=== PATIENT | male | born 1970 | race Caucasian/White ===

== ENCOUNTER → 2018-12-30 | Outpatient (CLI) | payer OTHER ==
[~2018-12-30] MED LIST: ACETAMINOPHEN325 M1 PO; ASPIR 8181 MG PO; ASPIRIN325 PO; ATORVASTATIN CA40 MG PO; BENICAR40 MG PO; CARVEDILOL25 MG PO; CEFAZOLIN2 GM/100 M IV; COREG25 MG PO; DURAGESIC1 EAC4 TRANSDERM; FERREX 150 PLU1 EAC1 PO; HYDROCODON-ACE1 EAC7 PO; LANTUS100 UNIT/M SUBQ; NITROGLYCERIN0.4 MG SUBLING; NORVASC10 MG PO; NOVOLOG100 UNIT/1 SUBQ; OZEMPIC0.25 MG/0. SUBQ; PEPCID AC10 MG PO; TRESIBA100 UNIT/1 SUBQ; TUMS PO; VITAMIN D350000 UNIT PO
== END ==
LOC: ULTRA 06:49
DX: Z01.818 Encounter for other preprocedural examination (principal); I25.119 Atherosclerotic heart disease of native coronary artery with unspecified angina pectoris; E11.22 Type 2 diabetes mellitus with diabetic chronic kidney disease; I12.9 Hypertensive chronic kidney disease with stage 1 through stage 4 chronic kidney disease, or unspecified chronic kidney disease; N18.3 Chronic kidney disease, stage 3 (moderate); E78.5 Hyperlipidemia, unspecified; E66.01 Morbid (severe) obesity due to excess calories; F17.210 Nicotine dependence, cigarettes, uncomplicated; Z95.1 Presence of aortocoronary bypass graft; Z79.4 Long term (current) use of insulin

== ENCOUNTER 2019-01-02 05:27 | Inpatient (IN) | payer OTHER ==
[2018-12-30 09:40] LABS: ABSOLUTE NEUTROPHILS 5.7 thou/uL (1.4-8.2); BASOPHILS 1.1 % (0.0-2.0); EOSINOPHILS 2.8 % (0.0-3.0); HEMATOCRIT 49.3 % (42.0-52.0); LYMPHOCYTES 27.9 % (24.0-44.0); MCHC 34.4 g/dL (28.0-37.0); MCV 84.5 fL (80.0-100.0); MONOCYTES 5.9 % (1.0-8.0); POLYS 62.3 % (36.0-66.0); RBC 5.84 mil/uL (4.50-6.00); RDW 14.9 % (10.5-14.5); WBC 9.1 thou/uL (4.0-11.0)
[2018-12-30 09:52] LABS: ALBUMIN 3.6 g/dL (3.4-5.0); CREATININE 1.3 mg/dL (0.7-1.3); POTASSIUM 3.9 mmol/L (3.5-5.1); TOTAL BILIRUBIN 0.5 mg/dL (<0.1-1.0); TOTAL PROTEIN 6.7 g/dL (6.4-8.2)
[2018-12-30 09:53] LABS: APTT 31.9 Seconds (24.5-32.8); PROTIME 10.4 Seconds (9.3-11.4); URINE BILIRUBIN NEGATIVE (Negative); URINE BLOOD NEGATIVE (Negative); URINE CLARITY CLEAR; URINE COLOR YELLOW; URINE GLUCOSE-RANDOM* NEGATIVE (Negative); URINE KETONES NEGATIVE (Negative); URINE LEUKOCYTES-REFLEX NEGATIVE (Negative); URINE NITRITE-REFLEX NEGATIVE (Negative); URINE PROTEIN (DIPSTICK) NEGATIVE (Negative); URINE UROBILINOGEN 0.2 E.U./dl (0.2-1.0)
[2018-12-30 10:20] LABS: PLATELET COUNT 146 thou/uL (150-400)
[2018-12-31 00:08] LABS: GLYCOHEMOGLOBIN (HGB A1C) 5.7 % (4.8-5.6)
[~2019-01-02] VITALS: Ht 175.3 cm; Wt 138.8 kg
[2019-01-02] VITALS (15 sets, daily range): BP systolic 100–161; BP diastolic 73–95
[~2019-01-02 05:27] MED LIST changes: -ACETAMINOPHEN325 M1 PO; -ASPIR 8181 MG PO; -CARVEDILOL25 MG PO; -CEFAZOLIN2 GM/100 M IV; -DURAGESIC1 EAC4 TRANSDERM; -FERREX 150 PLU1 EAC1 PO; -HYDROCODON-ACE1 EAC7 PO; -LANTUS100 UNIT/M SUBQ; -NOVOLOG100 UNIT/1 SUBQ
[2019-01-02 08:14] LABS: HEMATOCRIT 46.1 % (42.0-52.0); MCH 28.8 pg (26.0-34.0); MCHC 34.1 g/dL (28.0-37.0); MCV 84.4 fL (80.0-100.0); RBC 5.46 mil/uL (4.50-6.00); RDW 14.4 % (10.5-14.5); WBC 7.1 thou/uL (4.0-11.0)
[2019-01-02 08:18] LABS: HEMOGLOBIN 15.7 gm/dL (14.0-18.0)
[2019-01-02 14:42] LABS: HEMATOCRIT 36.1 % (42.0-52.0); MCHC 33.9 g/dL (28.0-37.0); MCV 85.5 fL (80.0-100.0); RBC 4.22 mil/uL (4.50-6.00); RDW 15.1 % (10.5-14.5)
[2019-01-02 14:44] LABS: HEMOGLOBIN 12.2 gm/dL (14.0-18.0)
[2019-01-02 14:54] LABS: FIBRINOGEN 204.8 mg/dL (210-360); INR 1.4; PROTIME 14.7 Seconds (9.3-11.4)
[2019-01-02 15:33] LABS: POC BE -1 mmol/L (-2.0 to +3.0); POC CA IONIZED 4.3 mg/dL (4.5-5.3); POC GLUCOSE 189 mg/dL (70-99); POC HCO3 24.2 mmol/L (22.0-26.0); POC HEMOGLOBIN 13.6 g/dL (14.0-18.0); POC POTASSIUM 5.3 mmol/L (3.5-5.1); POC SODIUM 135 mmol/L (136-145); POC pCO2 42.7 mmHg (35.0-45.0); POC pH 7.361 (7.360-7.450)
[2019-01-02 15:33] LABS: POC BE -3 mmol/L (-2.0 to +3.0); POC CA IONIZED 4.7 mg/dL (4.5-5.3); POC GLUCOSE 186 mg/dL (70-99); POC HCO3 23.7 mmol/L (22.0-26.0); POC HEMOGLOBIN 13.6 g/dL (14.0-18.0); POC POTASSIUM 4.8 mmol/L (3.5-5.1); POC SODIUM 138 mmol/L (136-145); POC pCO2 48.1 mmHg (35.0-45.0); POC pH 7.301 (7.360-7.450)
[2019-01-02 15:33] LABS: POC BE -3 mmol/L (-2.0 to +3.0); POC CA IONIZED 4.9 mg/dL (4.5-5.3); POC GLUCOSE 185 mg/dL (70-99); POC HCO3 22.5 mmol/L (22.0-26.0); POC HEMOGLOBIN 15.3 g/dL (14.0-18.0); POC POTASSIUM 4.7 mmol/L (3.5-5.1); POC SODIUM 137 mmol/L (136-145); POC pCO2 41.3 mmHg (35.0-45.0); POC pH 7.345 (7.360-7.450)
[2019-01-02 15:33] LABS: POC BE -1 mmol/L (-2.0 to +3.0); POC CA IONIZED 4.4 mg/dL (4.5-5.3); POC GLUCOSE 184 mg/dL (70-99); POC HCO3 24.3 mmol/L (22.0-26.0); POC HEMOGLOBIN 12.2 g/dL (14.0-18.0); POC POTASSIUM 4.6 mmol/L (3.5-5.1); POC SODIUM 138 mmol/L (136-145); POC pCO2 45.1 mmHg (35.0-45.0); POC pH 7.339 (7.360-7.450)
[2019-01-02 15:33] LABS: POC BE -6 mmol/L (-2.0 to +3.0); POC CA IONIZED 5.2 mg/dL (4.5-5.3); POC GLUCOSE 141 mg/dL (70-99); POC HCO3 20.7 mmol/L (22.0-26.0); POC HEMOGLOBIN 14.3 g/dL (14.0-18.0); POC POTASSIUM 4.1 mmol/L (3.5-5.1); POC SODIUM 140 mmol/L (136-145); POC pCO2 42.1 mmHg (35.0-45.0); POC pH 7.301 (7.360-7.450)
[2019-01-02 15:33] LABS: POC BE -1 mmol/L (-2.0 to +3.0); POC CA IONIZED 4.8 mg/dL (4.5-5.3); POC GLUCOSE 141 mg/dL (70-99); POC HEMOGLOBIN 15.3 g/dL (14.0-18.0); POC SODIUM 137 mmol/L (136-145); POC pCO2 47.9 mmHg (35.0-45.0); POC pH 7.325 (7.360-7.450)
[2019-01-02 15:33] LABS: POC BE -2 mmol/L (-2.0 to +3.0); POC CA IONIZED 4.5 mg/dL (4.5-5.3); POC GLUCOSE 184 mg/dL (70-99); POC HCO3 23.6 mmol/L (22.0-26.0); POC HEMOGLOBIN 12.6 g/dL (14.0-18.0); POC POTASSIUM 4.6 mmol/L (3.5-5.1); POC SODIUM 138 mmol/L (136-145); POC pCO2 45.3 mmHg (35.0-45.0); POC pH 7.325 (7.360-7.450)
[2019-01-02 15:33] LABS: POC BE -3 mmol/L (-2.0 to +3.0); POC CA IONIZED 5.2 mg/dL (4.5-5.3); POC GLUCOSE 166 mg/dL (70-99); POC HEMOGLOBIN 11.9 g/dL (14.0-18.0); POC SODIUM 139 mmol/L (136-145); POC pCO2 45.9 mmHg (35.0-45.0); POC pH 7.308 (7.360-7.450)
[2019-01-02 15:33] LABS: POC BE -2 mmol/L (-2.0 to +3.0); POC CA IONIZED 4.7 mg/dL (4.5-5.3); POC GLUCOSE 188 mg/dL (70-99); POC HCO3 24.3 mmol/L (22.0-26.0); POC HEMOGLOBIN 13.6 g/dL (14.0-18.0); POC POTASSIUM 4.7 mmol/L (3.5-5.1); POC SODIUM 138 mmol/L (136-145); POC pCO2 51.7 mmHg (35.0-45.0)
[2019-01-02 15:33] LABS: POC BE -3 mmol/L (-2.0 to +3.0); POC CA IONIZED 4.5 mg/dL (4.5-5.3); POC GLUCOSE 182 mg/dL (70-99); POC HCO3 23.2 mmol/L (22.0-26.0); POC HEMOGLOBIN 11.2 g/dL (14.0-18.0); POC POTASSIUM 4.5 mmol/L (3.5-5.1); POC SODIUM 137 mmol/L (136-145); POC pCO2 44.8 mmHg (35.0-45.0); POC pH 7.321 (7.360-7.450)
[2019-01-02 16:13] LABS: BE(vivo) -5.5 mmol/L (-2 to +3); HCO3 21.6 mmol/L (22.0-26.0); PO2 73.3 mmHg (80.0-100.0); pH 7.271 (7.360-7.450); sO2 92.7 % (92.0-98.0)
[2019-01-02 16:21] LABS: HEMATOCRIT 44.1 % (42.0-52.0); HEMOGLOBIN 14.9 gm/dL (14.0-18.0); MCH 28.7 pg (26.0-34.0); MCHC 33.8 g/dL (28.0-37.0); MCV 85.1 fL (80.0-100.0); RBC 5.18 mil/uL (4.50-6.00); RDW 15.3 % (10.5-14.5); WBC 14.4 thou/uL (4.0-11.0)
[2019-01-02 16:28] LABS: CALCIUM 8.5 mg/dL (8.5-10.1); CREATININE 1.5 mg/dL (0.7-1.3); POTASSIUM 4.5 mmol/L (3.5-5.1)
[2019-01-02 16:35] LABS: INR 1.1; PROTIME 11.6 Seconds (9.3-11.4)
--- NOTE | 2019-01-02 18:10 | EKG ---
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: Sosa COFFEY : 1970 Requested By: Antoni Rosales Order Number: [id number] MD: Ignacio Campo Measurements Intervals Tucker Rate: 96 P: 38 SD: 214 QRS: 71 QRSD: 111 T: 91 QT: 354 QTc: 448 Interpretive Statements Sinus rhythm Prolonged SD interval Anterior infarct, old Nonspecific T abnormalities Baseline wander in lead(s) II,III,aVF No previous ECG available for comparison Electronically Signed On 01-02-2019 18:10:29 CDT by Ignacio Campo [email or web address] ��������������������������������������������� <ELECTRONICALLY SIGNED> ���������������������������������������� By: Ignacio Campo MD, [facility] ��������������������������������������������� 01/02/19 1810 1631 1631 Ignacio Campo MD, [facility] /EPI
[2019-01-02 19:34] LABS: BE(vivo) -2.9 mmol/L (-2 to +3); HCO3 22.2 mmol/L (22.0-26.0); PCO2 39.7 mmHg (35.0-45.0); PO2 85.4 mmHg (80.0-100.0); pH 7.365 (7.360-7.450); sO2 96.2 % (92.0-98.0)
--- NOTE | 2019-01-02 20:01 | NUR ---
PATIENT ARRIVED FROM THE OR AT APPROX 1550 WITH OR STAFF AT BEDSIDE. DR MORRISON MANAGING THE ART, CVP, AND PAP LINES, DR BARRIOS AT BESIDE. PAIENT WAS HOOKED UP TO OUR MONITORS AND MADE COMFORTABLE IN THE ICU. MEDS AND PLEURAL CHEST TUBE TO -20 SUCTION. ABG RESULTS WAS GIVEN TO DR MORRISON AT BEDSIDE AND ADJUSTMENTS WERE MADE ACCORDINGLY. STERNUM WITH C/D/I DRESSING. ADEQUATE URINE OUTPUT NOTED. C/O PAIN X 1, FENT GIVEN WITH GOOD EFFECTS. OG TO LIS. NO OTHER CONCERNS AT THIS TIME. WILL CONTINUE TO MONITOR AND CARE PER PLAN OF CARE.
[2019-01-02 20:37] LABS: BE(vivo) -1.4 mmol/L (-2 to +3); HCO3 23.5 mmol/L (22.0-26.0); PCO2 40.6 mmHg (35.0-45.0); pH 7.381 (7.360-7.450); sO2 96.3 % (92.0-98.0)
[2019-01-02 21:30] LABS: BE(vivo) -2.2 mmol/L (-2 to +3); HCO3 23.6 mmol/L (22.0-26.0); PCO2 44.4 mmHg (35.0-45.0); PO2 78.9 mmHg (80.0-100.0); pH 7.344 (7.360-7.450)
--- NOTE | 2019-01-02 22:07 | NUR ---
ASSUMED CARE OF PT AT 1900. PT POST CABG X5, INTUBATED. ABLE TO FOLLOW COMMANDS AND NOD APPROPRIATELY TO QUESTIONS. DR BARRIOS AT BEDSIDE AT 1999. CPAP TRIAL INITIATED AT 2013. PT TOLERATED WELL AND EXTUBATED AT 2044. ABG RESULTS REPORTED TO DR BARRIOS AT BEDSIDE. PT REQUIRING LOW DOSE CARDENE OFF AND ON THROUGH OUT SHIFT. PAIN MEDICATION GIVEN. PT SR ON THE MONITOR. VSS. GOOD UO. INSULIN GTT PER POST CABG ORDER. WILL CONTINUE TO MONITOR. PT MAKING PROGRESS TOWARDS PLAN OF CARE.
[2019-01-03] VITALS (35 sets, daily range): BP systolic 102–142; BP diastolic 67–92
[2019-01-03 04:36] LABS: CALCIUM 8.6 mg/dL (8.5-10.1); CREATININE 1.2 mg/dL (0.7-1.3); MAGNESIUM 1.9 mg/dL (1.8-2.4); POTASSIUM 4.4 mmol/L (3.5-5.1)
[2019-01-03 04:44] LABS: HEMATOCRIT 42.3 % (42.0-52.0); HEMOGLOBIN 14.5 gm/dL (14.0-18.0); MCH 29.4 pg (26.0-34.0); MCHC 34.4 g/dL (28.0-37.0); MCV 85.4 fL (80.0-100.0); RBC 4.95 mil/uL (4.50-6.00); WBC 14.8 thou/uL (4.0-11.0)
--- NOTE | 2019-01-03 08:52 | EKG ---
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 : 1970 Requested By: Antoni Rosales Order Number: [id number] MD: Demetrio Segura Measurements Intervals Waddy Rate: 79 P: 14 AR: 168 QRS: -6 QRSD: 98 T: 52 QT: 366 QTc: 420 Interpretive Statements Sinus rhythm anterior infarct, old Baseline wander in lead(s) I,II,aVR,V1 Compared to ECG 01/02/2019 16:31:11 First degree AV block no longer present T-wave abnormality no longer present Myocardial infarct finding still present Electronically Signed On 01-03-2019 8:52:05 CDT by Demetrio Segura [email or web address] ��������������������������������������������� <ELECTRONICALLY SIGNED> ���������������������������������������� By: Demetrio Segura MD ��������������������������������������������� 01/03/19 0852 0 0 Demetrio Segura MD /EPI
--- NOTE | 2019-01-03 12:36 | HC ---
[facility] [place] [address] CONSULTATION Name: BENNIE GRECO Room #: 237-P ADM IN M.R.#: [id number] Admission: 01/02/19 ������������������ Attend Phys: Mina Gu MD Discharge: ������������������ Date of : 70 Report #: [id number] THIS REPORT FOR: //name// CC: CHIARA Johnson DATE OF SERVICE: 01/02/2019 CARDIOLOGY CONSULTATION HISTORY OF PRESENT ILLNESS: The patient is a 48-year-old white male who I was asked to see in the hospital today after he had coronary artery bypass surgery. The history is obtained from the old records. The patient is currently intubated. There are no family members available. The patient apparently had a previous myocardial infarction. He presented to [place] on December 24 with an episode of chest pain. He ruled in for a non-ST segment elevation myocardial infarction. He was seen in consultation by Dr. Raad Del Cid. He underwent cardiac catheterization. Results showed multivessel coronary artery disease including total occlusion of the mid LAD that filled distally by collaterals. Second diagonal branch had 80% proximal stenosis. The right coronary artery had a 70% proximal stenosis. No ventriculogram was performed. He underwent an echocardiogram that showed normal left ventricular function, left ventricular hypertrophy. He was then referred to Dr. Regis Jenkins in the Cardiology Clinic. Dr. Jenkins agreed with need for coronary artery bypass surgery. The patient was electively admitted earlier today and underwent 5-vessel bypass with a RAMIREZ graft to LAD, vein graft to the lateral and posterior descending branch as well as the marginal and diagonal artery. I saw him in the ICU. At this time, the patient is still intubated, he is awake. PAST MEDICAL HISTORY: Significant for right hand surgery. He has history of chronic kidney disease and diabetes. He has had a history of necrotizing fasciitis of his right groin, hyperlipidemia. MEDICATIONS: Consist of amlodipine, aspirin, Lipitor, carvedilol, hydrochlorothiazide, insulin, Benicar. ALLERGIES: He has no known drug allergies. SOCIAL HISTORY: The patient has been a smoker. No alcohol abuse. REVIEW OF SYSTEMS: There is no history of stroke, asthma, peptic ulcer disease, liver disease, cancer, psychiatric illness, chronic skin condition. PHYSICAL EXAMINATION: [facility] [address] [place] [address] CONSULTATION Name: BNENIE GRECO Sosa Room #: 237-P [facility] IN ..#: [id number] Admission: 01/02/19 ������������������ Attend Phys: Mina Gu MD Discharge: ������������������ Date of : 70 Report #: [id number] GENERAL: Revealed a middle-aged male lying in bed. He was in mild distress secondary to being intubated. VITAL SIGNS: His blood pressure is 140/80, pulse is 70. HEENT: He is anicteric. Mucous members appear moist. NECK: Veins are difficult to assess. CHEST: Clear to auscultation. CARDIAC: Regular rate and rhythm. ABDOMEN: Obese. EXTREMITIES: Had no pitting edema. SKIN: Cool and dry. LABORATORY DATA: His ECG done following surgeries showed a sinus rhythm. There is septal Q-waves noted. His x-ray this morning showed cardiomegaly, some pulmonary edema. Previous carotid Doppler study showed no evidence of significant stenosis in the carotid arteries. LABORATORY WORK: Sodium 138, BUN 21, creatinine 1.5. His liver function studies were normal. White blood cell count 14.4, hemoglobin 14.9. IMPRESSION AND RECOMMENDATIONS: 1. Status post coronary artery bypass surgery. I would recommend aspirin. I would consider amiodarone prophylaxis to prevent atrial arrhythmias. 2. Diabetes. The patient has been on insulin. 3. Hypertension. I would consider giving the patient beta-sancho. 4. Hyperlipidemia. The patient is on a statin drug. 5. Obesity. 6. Chronic kidney disease. ��������������������������������������������� <ELECTRONICALLY SIGNED> ���������������������������������������� By: Sal Euceda MD, FACC ��������������������������������������������� 01/03/19 1236 [id number] [id number] Sal Euceda MD, FACC /nt
--- NOTE | 2019-01-03 17:08 | NUR ---
met with patient who admits post CABG. Patient resides at home with spouse and disabled child 33 years old. 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 He and blended family with 6 children all supportive and avail to assist at dc. Anticipated dc with outptient cardia rehab.
--- NOTE | 2019-01-03 20:27 | NUR ---
PATIENT REMAINS A&O X 4, PLEASNAT AND COOPERATIVE WITH CARES. C/O PAIN THROUGHOUT THE SHIFT, PAIN MEDICATIONS GIVEN AND DID HAVE RESULTS. PATIENT A-LINE REMOVED AND SWAN AND PATIENT TOLERATED IT WELL. LINCOLN AND MEDS REMOVED PATIENT ALSO TOLERATED IT WELL. PATIENT HAS A PRODUCTIVE COUGH. NO OTHER CONCERNS AT THIS TIME. WILL CONTINUE TO MONITOR AND CARE PER PLAN OF CARE.
[2019-01-04] VITALS (11 sets, daily range): BP systolic 91–133; BP diastolic 59–89
--- NOTE | 2019-01-04 06:15 | NUR ---
Pt slept well through the night with stable VS. PRN hydrocodones and fentanyl given for c/o chest "soreness" with desired effects achieved. Up to chair earlier this am without difficulty and only stand-by assist needed. Voiding per urinal small amounts and no BM observed this shift. Am lab results pending, continue with POC.
[2019-01-04 06:17] LABS: HEMATOCRIT 35.9 % (42.0-52.0); MCHC 33.5 g/dL (28.0-37.0); MCV 86.6 fL (80.0-100.0); RBC 4.15 mil/uL (4.50-6.00); RDW 15.1 % (10.5-14.5); WBC 10.2 thou/uL (4.0-11.0)
[2019-01-04 06:46] LABS: CALCIUM 8.9 mg/dL (8.5-10.1); CREATININE 1.3 mg/dL (0.7-1.3); POTASSIUM 4.2 mmol/L (3.5-5.1)
--- NOTE | 2019-01-04 11:55 | NUR ---
Pt alert and oriented. Ambulated in moca with assist of PT. Sinus rhythm. O2 at 6 liters per nasal cannula. Left pleural tube patient to Atrium drain. No air leak noted. Introducer intact right IJ. Voiding per urinal. Adequate pain control with Hydrocodone. Bin drsg intact to sternum. Report called to receiving nurse on 2North (Katy). Pt transferred to [facility] via wheelchair. Assisted to bedside chair. [address] [facility] staff present to place on monitor and orient to [facility] room. Pt notified his of new room number. Pt transferred to [facility] with his cell phone and glasses. Chest tube placed to 20 cm of suction per Atrium drain in [facility] room.
--- NOTE | 2019-01-04 16:30 | NUR ---
PT CARE ASSUMED APPROX 1200 ON TRANSFER FROM ICU. PT ALERT AND ORIENTED X4. DENIES SOA. C/O PAIN TO STERNUM 04/23. PAIN MANAGED WITH HYDROCODONE. PT DESATTED WHILE AMBULATING WITH P/T. RECOVERED QUICKLY AND DENIED FEELING SOA. ALL DSGS C/D/I. PT UP WITH SBA. VSS. AT BEDSIDE FOR A SHORT TIME. DENIED NEEDING CLINICAL UPDATE. PT BS WNL AT LUNCH TIME. DR BARRIOS AT BEDSIDE AT THIS TIME. NO DISTRESS NOTED.
[2019-01-05 04:27] VITALS: BP 118/75
--- NOTE | 2019-01-05 06:27 | NUR ---
ASSUME CARE 1900. PT/VITALS STABLE. INTERMITTENT INCISIONAL PAIN. TOLERATES ACTIVITY WELL UP WITH STB ASSIST TO BATHROOM. PT.OT WORKING WITH PT. ASSESSMENT AAS CHARTED. PROGRESSING WELL WITH POC. DRESSING INTACT. SALIMA INTACT. LEFT LEG MALIKA DRAIN INTACT WITH SMALL SANGUINOUS DRAINAGE NOTED. PLAN IS TO CONTINUE WITH POST OP CARE, PREVENT INFECTION, AND PROMOTE HEALTH. ENCOURAGED TO USE IS FREQUENTLY. WILL CONTINUE TO MONITOR AND FOLLOW WITH POC
[2019-01-05 08:26] VITALS: BP 108/70
[2019-01-05 12:34] VITALS: BP 104/68
[2019-01-05 16:23] VITALS: BP 116/77
--- NOTE | 2019-01-05 16:44 | NUR ---
PT CARE ASSUMED APPROX 0700. PT ALERT AND ORIENTED X4. DENIES SOA. REPORTS MID-STERNAL PAIN 04/23. HYRDROCODONE ADMIN TO MANAGE PAIN. DSGS CDI. SALIMA DSG SUCTIONING. PT WEANED TO 3LNC THIS SHIFT. MAINTAINED O2 SAT WNL WHILE AMBULATING WITH P/T. MALIKA DRAIN TO LLE PATENT. BNP CALLED TO CV ORDERD. DIURETIC THERAPY INITITATED THIS AFTERNOON WITH 1X DOSE AND THEN DAILY DOSES OF 40 TO START AFTER TOMORROW. PT DENIES QUESTIONS OR CONCERNS REGARDING POC. FAMILY AT BEDSIDE AT THIS TIME. NO DISTRESS NOTED.
[2019-01-05 19:58] VITALS: BP 110/66
[2019-01-06 04:40] LABS: HEMATOCRIT 32.6 % (42.0-52.0); HEMOGLOBIN 11.1 gm/dL (14.0-18.0); MCH 29.2 pg (26.0-34.0); MCHC 34.2 g/dL (28.0-37.0); MCV 85.4 fL (80.0-100.0); RBC 3.81 mil/uL (4.50-6.00); RDW 14.8 % (10.5-14.5); WBC 7.2 thou/uL (4.0-11.0)
[2019-01-06 04:41] LABS: CREATININE 1.2 mg/dL (0.7-1.3); MAGNESIUM 1.6 mg/dL (1.8-2.4); POTASSIUM 3.7 mmol/L (3.5-5.1)
[2019-01-06 04:49] VITALS: BP 113/67
--- NOTE | 2019-01-06 08:18 | EKG ---
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1970 Requested By: Antoni Rosales Order Number: [id number] MD: Jairo Wong Measurements Intervals Hope Rate: 63 P: 17 NM: 195 QRS: 18 QRSD: 95 T: 76 QT: 415 QTc: 425 Interpretive Statements Sinus rhythm Anteroseptal infarct, old Minimal ST elevation, inferior leads Baseline wander in lead(s) V1,V3 Compared to ECG 01/03/2019 07:11:46 ST (T wave) deviation now present Myocardial infarct finding still present Electronically Signed On 01-06-2019 8:18:44 CDT by Jairo Wong [email or web address] ��������������������������������������������� <ELECTRONICALLY SIGNED> ���������������������������������������� By: Jairo Wong MD ��������������������������������������������� 01/06/19817 5 5 Jairo Wong MD /EPI
--- NOTE | 2019-01-06 08:33 | NUR ---
ASSESSMENTS CHARTED. UP IN CHAIR DURING SHIFT. PATIENT USING IS FREQUENTLY. PATIENT REQUESTED PAIN MEDS TWICE WITH PAIN AT 7 DOWN TO 2. PATIENT WALKED ONCE AROUND THE UNIT AFTER STANDING WEIGHT. PLANNING ON DISCHARGING TODAY.
[2019-01-06 08:59] VITALS: BP 112/72
[2019-01-06 13:07] VITALS: BP 132/78
[2019-01-06 15:44] VITALS: BP 99/64
--- NOTE | 2019-01-06 16:47 | NUR ---
PT CARE ASSUMED APPROX 0700. PT ALERT AND ORIENTED X4. DENIED PAIN FOR MOST OF SHIFT UNTIL 1500. PT HAD 6/10 STERNAL PAIN. PAIN MANAGED WITH HYDROCODONE. PT REPORTED RELIEF AFTER. LIBERATED FROM OXYGEN AND BREATHING TREATMENTS THIS SHIFT. PT TOLERATING RA ON EXERTION WELL AT REST. PT CONITNUED DIURETIC THERAPY BUT CHANGED TO PO. MALIKA DRAIN DISCONITNUED THIS SHIFT. PRESSURE DSG IN PLACE, C/D/I. P/T APPROVED PT TO BE UP INDEPENDENTLY. PT STEADY AND SAFE. BS ELEVATED AT LUNCH. SSI USED TO CONTROL HYPERGLYCEMIA. MAG REPLACED ORALLY. WILL F/U WITH RE-EVAL TIMELY. PT AND AT BEDSIDE DENY QUESTIONS OR CONCERNS REGARDING POC. NO DISTRESS NOTED.
[2019-01-06 19:13] VITALS: BP 102/67
[2019-01-07 03:37] VITALS: BP 97/65
--- NOTE | 2019-01-07 06:39 | NUR ---
ASSESSMENTS CHARTED. PATIENT SITTING IN CHAIR AND AMBULATING IN [place]. NEEDED PAIN MEDS TWICE DURING SHIFT. PLAN IS TO GO HOME TODAY.
[2019-01-07 08:00] VITALS: BP 111/89
[2019-01-07] MEDS ORDERED: FERREX 150 PLU1 EAC1 PO (08:42)
[2019-01-07 11:17] VITALS: BP 111/89
[2019-01-07 11:52] VITALS: BP 94/81
--- NOTE | 2019-01-07 12:20 | NUR ---
ASSESSMENT DOCUMENTED. PT ALERT AND ORIENTED. RECEIVED PRN PAIN MED WITH PARTIAL RELIEF. SURGICAL DRESSING ON THE LEFT LEG CHANGED BY LISET SINGLETARY. STUNUM DRESSING D/I WITH A SMALL AMOUNT OF DRY BLOOD NOTED. ORDERS GIVEN TO DISCHARGE PT TO HOME. DISCHARGE INSTRUCTIONS GIVEN TO PT. PT VERBERLISED UNDERSTANDING.
--- NOTE | 2019-01-07 19:21 | O ---
[facility] [place] [address] OPERATIVE REPORT Name: BENNIE GRECO Room #: 215-P [facility] IN M.R.#: [id number] Admission: 01/02/19 ������������������ Attend Phys: Mina Gu MD Discharge: 01/07/19 ������������������ Date of : 70 Report #: [id number] THIS REPORT FOR: //name// CC: Jack Gu DATE OF SERVICE: 01/02/2019 PREOPERATIVE DIAGNOSIS: Coronary artery disease. POSTOPERATIVE DIAGNOSIS: Coronary artery disease. OPERATIONS: Coronary artery bypass x 5, including left internal mammary artery to left anterior descending artery, saphenous vein to diagonal and marginal arteries and saphenous vein to posterior descending and posterolateral branches of the right coronary artery. Endoscopic and open harvest of left greater saphenous vein. SURGEON: Regis Jenkins M.D. TOOL TROUBLE SHOOTER: HAYDER Almaraz. ANESTHESIA: General. INDICATIONS: The patient is a 48-year-old, seen for Dr. Raad Del Cid. The patient has severe 3-vessel coronary artery disease, found after the patient was seen for unstable angina. The patient has a history of coronary artery disease in the past. The patient has diabetes, hypertension and hyperlipidemia and is overweight and he is also a current smoker. FINDINGS AND TECHNIQUE: After general anesthesia was established, left saphenous vein was harvested using a combination of open and endoscopic approach and it was prepared for use as a conduit. Exposure was obtained through median sternotomy. Left internal mammary artery was harvested from the chest wall. Pericardial well was made. Cannulation sutures were placed. Heparin was given. Aorta was cannulated. Right atrium was cannulated. Cardioplegia needle was positioned in the aortic root. Retrograde cardioplegia catheter was placed in the coronary sinus. Cardiopulmonary bypass was established. The aorta was cross-clamped. Antegrade, then retrograde cardioplegia were given. Ice was poured into the pericardial well. The heart stopped. During electromechanical arrest, the distal anastomoses were performed. An end-to-side anastomosis was made between vein and the posterolateral branch of [facility] [address] [place] [address] OPERATIVE REPORT Name: BENNIE GRECO Room #: 215-P [facility] IN M.R.#: [id number] Admission: 01/02/19 ������������������ Attend Phys: Mina Gu MD Discharge: 01/07/19 ������������������ Date of : 70 Report #: [id number] the right coronary. This was a small vessel, measuring 1.1 mm in diameter. Cold cardioplegia was given and the same segment of vein was sewn in ygbd-ug-hcmd fashion to the posterior descending artery. This was also a small vessel largely due to atheroma and it was a 1-mm vessel. Cold cardioplegia was given. A separate segment of vein was sewn in end-to-side fashion to a marginal artery. This was a large vessel measuring 1.6 mm, but it was diffusely diseased. Cold cardioplegia was given. The same segment of vein was sewn in lfyz-af-nwkr fashion to the diagonal artery. This was a 1.5 mm vessel. It was also diffusely diseased. Cold cardioplegia was given. Left internal mammary artery was sewn in end-to-side fashion to the left anterior descending artery. This was a chronically occluded vessel and was not well seen on the angiogram, but it was much better than anticipated and measured 1.5 mm. Cold cardioplegia was given. After this anastomosis was checked with the temperature technique, cold cardioplegia was given. As mentioned, 2 proximal anastomoses were performed. When these were complete, warm retrograde cardioplegia was given, followed by warm continuous blood to the coronary sinus. When this infusion was complete, the cross clamp was removed. De-airing maneuvers were performed. The anastomoses were inspected and found to be satisfactory. As the patient warmed, nice cardiac activity resumed. Chest tubes and pacing wires were placed. A marker was placed around the proximal anastomoses. When the patient was warmed, he was weaned from cardiopulmonary bypass. Venous cannula was removed. Protamine was given. The aortic cannula was removed. Flow was measured in the bypass grafts. When hemostasis was satisfactory, chest was irrigated with antibiotic solution and closed in the usual fashion. The patient was taken to the Intensive Care Unit in good condition, having tolerated the procedure well. All counts were reported as correct. ��������������������������������������������� <ELECTRONICALLY SIGNED> ���������������������������������������� By: Regis Jenkins MD ��������������������������������������������� 01/07/19 1921 1000 1052 Regis Jenkins MD /nt
== END 2019-01-07 13:04 | disposition home or self-care (01) | DRG 236 ==
LOC: TBA 05:27 → ICU 05:27 → PRE 05:39 → ICU 15:53 → 2N 01-04 12:22 → ENTRNSPT 01-07 12:18 → EDTRNSPTSTS 01-07 12:21 → 2N 01-07 13:04
PROVIDERS: Internal Medicine; Physician Assistant; ADMIT Surgery Vascular Surgery
DX: I25.10 Atherosclerotic heart disease of native coronary artery without angina pectoris (principal); Z68.42 Body mass index [BMI] 45.0-49.9, adult; E11.22 Type 2 diabetes mellitus with diabetic chronic kidney disease; E78.5 Hyperlipidemia, unspecified; N18.3 Chronic kidney disease, stage 3 (moderate); I12.9 Hypertensive chronic kidney disease with stage 1 through stage 4 chronic kidney disease, or unspecified chronic kidney disease; F29 Unspecified psychosis not due to a substance or known physiological condition; D72.829 Elevated white blood cell count, unspecified; E66.01 Morbid (severe) obesity due to excess calories; E87.70 Fluid overload, unspecified; Z79.82 Long term (current) use of aspirin; Z79.899 Other long term (current) drug therapy
CPT/HCPCS: 10078; 10081; 47000; 47001; 47002; 47297; 48888; 50010; 50249; 50409; 50456; 50498; 50668; 51301; 52131; 52314; 53327; 53358; 54118; 56455; 56524; 56525; 56526; 56527; 56528; 56531; 56534; 56639; 56668; 56760; 56898; 57093; 62110; 62950; 65003; 65020; 65047; 65090; 65120; 83006

== ENCOUNTER 2019-01-23 15:56 | Inpatient (IN) | payer OTHER ==
[~2019-01-23] VITALS: Ht 175.3 cm; Wt 131.4 kg
--- NOTE | ~2019-01-23 | HC ---
[facility] [place] [address] CONSULTATION Name: ANGUSVANNESAFELIPAMIKE Swan Room #: 242-P ADM IN M.R.#: [id number] Admission: 01/23/19 ������������������ Attend Phys: Elmer Conrad MD Discharge: ������������������ Date of : 70 Report #: [id number] THIS REPORT FOR: //name// CC: Elmer Santiago [place] DATE OF SERVICE: 01/24/2019 REASON FOR CONSULTATION: Elevated creatinine. REASON FOR PRESENTATION: Drainage from his sternal wound. HISTORY OF PRESENT ILLNESS: A 48-year-old with morbid obesity, hypertension and hyperlipidemia. He underwent CABG surgery on 01/02/2019, this was x 5. He presented with drainage from his sternal wound, this was not associated with fever; however, he did have some redness. He is known to have diabetes mellitus. He stopped taking his medications. He tells me that his blood sugar is under control with that. He has normal kidney function. When he presented yesterday, he was in extreme hypotension. Blood pressure was in the 80/50 range. He was admitted and hydrated accordingly as he was found to have a creatinine of 2.4. I am being consulted to manage his acute kidney injury. PAST MEDICAL HISTORY: 1. Hypertension. 2. Hyperlipidemia. 3. FL back in 2013. 4. Necrotizing fasciitis of the right side, status post debridement. 5. Status post CABG x 5. MEDICATIONS: 1. Famotidine. 2. Semaglutide. 3. Olmesartan. 4. Tarceva. 5. Amlodipine. 6. Carvedilol. 7. Aspirin. REVIEW OF SYSTEMS: GENERAL: Significant for chills. CARDIOVASCULAR: As per the history of present illness. PULMONARY: No cough or hemoptysis. GASTROINTESTINAL: Decreased oral intake. GENITOURINARY: No frequency or urgency. SKIN: As per the history of present illness. [facility] [address] [place] [address] CONSULTATION Name: BENNIE GRECO Room #: 242-P [facility] IN [facility]#: [id number] Admission: 01/23/19 ������������������ Attend Phys: Elmer Conrad MD Discharge: ������������������ Date of : 70 Report #: [id number] SOCIAL HISTORY: He denies drug or alcohol abuse. ALLERGIES: None. FAMILY HISTORY: Significant for coronary artery disease. PHYSICAL EXAMINATION: VITAL SIGNS: Blood pressure is 104/63, pulse is 83, temperature is 37.6. HEAD AND NECK: No jugular venous distention. CHEST: Decreased air entry bilaterally. Dressing applied over the left sternal wound. ABDOMEN: Soft, nontender with no hepatosplenomegaly. EXTREMITIES: Lower extremities, no edema with bruises from his saphenous vein graft. LABORATORY DATA: Reviewed. Sodium is 136, potassium is 3.9, BUN is 27, creatinine is down to 1.9. ASSESSMENT, IMPRESSION AND PLAN: 1. Acute kidney injury due to dehydration and hypotension. 2. Status post coronary artery bypass graft. 3. Infected sternal wound. 4. Discontinue olmesartan. 5. Discontinue amlodipine given his hypotension. 6. Continue with the IV fluid resuscitation at this point. 7. Continue to monitor his renal function. 8. Expect his renal function to fully recover. ��������������������������������������������� ���������������������������������������� By: ��������������������������������������������� 0824 2220 Willam Carter MD /nt
[~2019-01-23 15:56] MED LIST changes: +FERREX 150 PLU1 EAC1 PO
[2019-01-23 16:15] VITALS: BP 82/51
[2019-01-23 17:01] LABS: ABSOLUTE NEUTROPHILS 3.8 thou/uL (1.4-8.2); BASOPHILS 0.3 % (0.0-2.0); EOSINOPHILS 1.3 % (0.0-3.0); HEMATOCRIT 34.5 % (42.0-52.0); HEMOGLOBIN 11.6 gm/dL (14.0-18.0); MCH 28.9 pg (26.0-34.0); MCHC 33.6 g/dL (28.0-37.0); PLATELET COUNT 152 thou/uL (150-400); POLYS 87.4 % (36.0-66.0); RBC 4.01 mil/uL (4.50-6.00); RDW 15.3 % (10.5-14.5); WBC 4.4 thou/uL (4.0-11.0)
[2019-01-23 17:07] LABS: CALCIUM 9.7 mg/dL (8.5-10.1); CREATININE 2.4 mg/dL (0.7-1.3); POTASSIUM 3.3 mmol/L (3.5-5.1)
[2019-01-23 17:13] LABS: ALBUMIN 2.8 g/dL (3.4-5.0); TOTAL BILIRUBIN 1.8 mg/dL (<0.1-1.0)
[2019-01-23 17:15] LABS: APTT 41.7 Seconds (24.5-32.8); PROTIME 10.6 Seconds (9.3-11.4)
--- NOTE | 2019-01-23 17:19 | NUR ---
AT 1615, DIRECT ADMIT TO CCU ROOM #207 WITH STERNAL WOUND INFECTION. PT HAD IN THE LOWER THIRD OF STERNAL INCISION A 1 CM AREA THAT SPONTANEOUSLY STARTED OOZING TODAY. HE REPORTED TO DR. LANDAVERDE, CARDIOTHORACIC SURGEON'S OFFICE WITH WITH ORDERS FOR ADMIT. SEE ADMISSION ASSESSMENT FOR DETAILS. ONLY DISCOMFORT IS HIS TYPICAL POST-0P DISCOMFORT WHICH IS CONTROLLED. SR, ROOM AIR, TOLERATING EVENING MEAL, NPO AFTER 2400. LABS INCLUDING T&C OBTAINED PER TOLL LINE MECHANIC, EKG COMPLETED, TX DOWN TO RADIOLOGY FOR PCXR- 2 VIEW. FALL CONTRACT, CONSENTS FOR SURGICAL PROCEDURE AND BLOOD ADMINISTRATION SIGNED. AT BEDSIDE PROVIDING SUPPORT.
[2019-01-23 19:18] VITALS: BP 108/61
--- NOTE | 2019-01-23 20:15 | NUR ---
PT'S COMPLEXION IMPROVED, NOW SLIGHTLY PINK. REPORT TO TIFFANIE FREDERICK. DURING SHIFT REPORT, CHANGED MIDSTERNAL DRESSING WITH LARGE AMOUNT PURULENT DRAINAGE FROM 1 CM DEHISED AREA IN UPPER 1/3 OF MIDSTERNAL INCISION. MOST INFERIOR PART OF INCISION OPEN WITH SEROSANGUINOUS MOISTENED PACKING INTACT. DRESSING REDRESSED WITH 4X4'S/ABD.
[2019-01-24] VITALS (18 sets, daily range): BP systolic 101–141; BP diastolic 53–98
[2019-01-24 01:48] LABS: URINE BILIRUBIN NEGATIVE (Negative); URINE BLOOD NEGATIVE (Negative); URINE CLARITY CLEAR; URINE COLOR YELLOW; URINE GLUCOSE-RANDOM* NEGATIVE (Negative); URINE KETONES NEGATIVE (Negative); URINE LEUKOCYTES-REFLEX NEGATIVE (Negative); URINE NITRITE-REFLEX NEGATIVE (Negative); URINE PROTEIN (DIPSTICK) TRACE (Negative)
--- NOTE | 2019-01-24 04:17 | NUR ---
ASSESSMENTS CHARTED. PATIENT HAS RETURNED WITH STERNAL INCISION DEHISCED AT LOWER MARGIN, PUERLENT DRAINAGE AND SERROUS DRAINAGE PRESENT. DRESSING CHANGED TWICE DURING SHIFT. C/O NON-CARDIAC CHEST PAIN 05/24. PAIN MEDS GIVEN CHARTED. PLAN OF CARE IS TO RETURN TO SURGERY TO HAVE WOUND CLEANED AND DRESSED WITH A WOUND VAC DRESSING. ANTIBIOTIC THERAPY IN PROCESS.
[2019-01-24 05:04] LABS: HEMATOCRIT 32.7 % (42.0-52.0); HEMOGLOBIN 10.9 gm/dL (14.0-18.0); MCH 28.8 pg (26.0-34.0); MCHC 33.3 g/dL (28.0-37.0); MCV 86.4 fL (80.0-100.0); RBC 3.78 mil/uL (4.50-6.00); RDW 15.5 % (10.5-14.5); WBC 4.5 thou/uL (4.0-11.0)
[2019-01-24 05:18] LABS: ALBUMIN 2.7 g/dL (3.4-5.0); BUN 27 mg/dL (7-18); CHLORIDE 99 mmol/L (98-107); CO2 23 mmol/L (21-32); CREATININE 1.9 mg/dL (0.7-1.3); GLUCOSE 124 mg/dL (74-106); PHOSPHORUS 4.1 mg/dL (2.5-4.9); POTASSIUM 3.9 mmol/L (3.5-5.1)
[2019-01-24 05:19] LABS: ANION GAP < 0 mmol/L (7-16)
[2019-01-24 05:23] LABS: SODIUM 136 mmol/L (136-145)
--- NOTE | 2019-01-24 10:34 | NUR ---
Consult received for previous special diet. Pt admitted for infection of surgical wound on chest. Previously on carb control, low fat, 2400 ml fluid restriction. Home diet is diabetic, low carb, high protein, and avoid fried foods. Pt taken to surgery before RD visit. Per nursing, pt will be transferred to ICU. Will follow-up at a later time.
--- NOTE | 2019-01-24 11:35 | NUR ---
PT TO ICU POST OP BELONGINGS TAKEN TO ICU.
--- NOTE | 2019-01-24 12:59 | NUR ---
VASCULAR ACCESS TEAM CONSULTED FOR PICC LINE FOR ANTIBIOTICS FOR CHEST WOUND.PT'S LABS,MEDS,HISTORY ,ORDER AND CONSENT VERIFIED. DISCUSSED BENEFITS AND RISKS WITH PT,VERBALIZED UNDERSTANDING.PT WAS PREPPED AND DRAPED FOR MAX BARRIER PRECAUTIONS.ZACH CEPHALIC WAS WIDELY PATENT WITH USG,1% LIDOCAINE GIVEN SQ. 5FR DL POWER PICC TRIMMED TO 53CM INSERTED TO 1CM EXTERNAL. PICC SECURED AND STAT CXR OBTAINED.
--- NOTE | 2019-01-24 13:44 | NUR ---
picc released for immediate use to Deborah RN, CXR confirmed placement
--- NOTE | 2019-01-24 15:20 | NUR ---
Chart reviewed and case discussed with the care team. Pt now in ICU s/p I&D of his sternal incision. Wound vac in place. Pt is resting this afternoon. Spouse is not here at this time. Pt known to the care team from previous admission and open heart surgery. Pt lives with his and children. He has health insurance in place for f/u care. Will follow along should the pt need hh and or iv atb at ar. Wound vac will likely be managed by CTS with qod visits to their office.
--- NOTE | 2019-01-24 18:43 | NUR ---
PT TX AFTER SURGERY. STERNAL DEBRIDEMENT WITH DR BARRIOS. INCISION WITH WOUND VAC. PT CYNTHIA DIET AND PRN PAIN MEDS. HOME FOR THE DAY. PT HAS CELL PHONE AND TABLET AT BEDSIDE. PROGRESSING TOWARD PLAN OF CARE.
[2019-01-25] VITALS (13 sets, daily range): BP systolic 108–131; BP diastolic 57–83
[2019-01-25 00:08] LABS: GLYCOHEMOGLOBIN (HGB A1C) 5.8 % (4.8-5.6)
--- NOTE | 2019-01-25 06:17 | NUR ---
Assumed care at 2300 last pm and pt rested well through the night. PRN fentanyl and hydrocodones given for c/o chest "soreness" with desired effects achieved. VS stable and SpO2 adequate on 3L of O2. Large amount of urine output for shift and wound vac drainage unremarkable. Am lab results pending, continue with POC.
[2019-01-25 06:45] LABS: HEMATOCRIT 31.2 % (42.0-52.0); HEMOGLOBIN 10.4 gm/dL (14.0-18.0); MCH 28.6 pg (26.0-34.0); MCHC 33.4 g/dL (28.0-37.0); MCV 85.6 fL (80.0-100.0); RBC 3.64 mil/uL (4.50-6.00); RDW 15.9 % (10.5-14.5); WBC 5.2 thou/uL (4.0-11.0)
--- NOTE | 2019-01-25 06:45 | HC ---
[facility] [place] [address] CONSULTATION Name: BENNIE GRECO Room #: 242-P ADM IN M.R.#: [id number] Admission: 01/23/19 ������������������ Attend Phys: Elmer Conrad MD Discharge: ������������������ Date of : 70 Report #: [id number] THIS REPORT FOR: //name// CC: Elmer Burgesstravis [facility] DATE OF SERVICE: 01/24/2019 INFECTIOUS DISEASE CONSULTATION ATTENDING PHYSICIAN: Dr. Conrad. REASON FOR CONSULTATION: Sternal wound infection. HISTORY OF PRESENT ILLNESS: A 48-year-old white man underwent coronary artery bypass grafting on 01/02/2019, discharged home and readmitted with drainage from sternal wound. No fevers, slight chills and redness. No known drug allergies. The patient underwent sternal wound debridement by Dr. Jenkins today. Vacuum device applied to chest wound. Cultures are all pending. PAST MEDICAL HISTORY: Coronary artery disease, previous myocardial infarction requiring stenting, diabetes mellitus, on insulin; dyslipidemia, hypertension, recent coronary artery bypass grafting on 01/02/2019, history of right thigh infection, fasciitis requiring surgeries and HBO therapy; right hand severed tendon requiring surgery, tinnitus, obesity. DRUG ALLERGIES: None listed. MEDICATIONS: The patient is currently on treatment with vancomycin 1 g IV every 12 hours, being handled by pharmacy. He is on aspirin, melatonin, nicardipine, fentanyl p.r.n., hydrocodone p.r.n., mupirocin nasally b.i.d., acetaminophen p.r.n., famotidine b.i.d. IV, ondansetron p.r.n., polyethylene glycol daily, insulin glargine 15 units subcutaneously daily, morphine sulfate p.r.n. He is also on insulin lispro per sliding scale and atorvastatin. SOCIAL HISTORY: , has 6 children, 3 from , 3 from himself. 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 REVIEW OF SYSTEMS: Denies fevers, obviously in pain. For details, see H and P. PHYSICAL EXAMINATION: GENERAL: A well-developed, somnolent white man. VITAL SIGNS: Temperature maximum since admission 99.6, pulse 83, respirations 16, BP 104/63, BP as low as 82/51 on admission. Height 5 feet 9 inches, weight 305 pounds. HEENMT: Head normocephalic, atraumatic. Some periodontal disease. [facility] [address] [place] [address] CONSULTATION Name: BENNIE GRECO Room #: 242-P [facility] IN [facility]#: [id number] Admission: 01/23/19 ������������������ Attend Phys: Elmer Conrad MD Discharge: ������������������ Date of : 70 Report #: [id number] NECK: Supple. CHEST: Revealed vacuum device in place with open sternal wound. LUNGS: Basilar crackles. HEART: S1, S2. ABDOMEN: Soft, no masses or megaly. GENITALIA: Deferred. RECTAL: Deferred. EXTREMITIES: Reveal ecchymosis, right thigh from venous harvesting. NEUROLOGIC: Grossly within normal limits. LABORATORY DATA: Sodium 136, potassium 3.9, was hypokalemic at 3.3 on admission; creatinine was 2.4 on admission, down to 1.9 today. Glucose 142, total bilirubin 1.8. Albumin 2.7 g/dL. WBC 4500, hemoglobin 10.9 g/dL and platelets 170,000. Urinalysis revealed trace protein. MICROBIOLOGY DATA: All pending. RADIOLOGY EVALUATION: Chest x-ray revealed status post CABG and some minimal abnormalities in right perihilar region, otherwise negative. ASSESSMENT: 1. Sternal wound infection, status post incision and drainage. 2. Recent coronary artery bypass grafting on 01/02/2019. 3. Myocardial infarction and previous stenting. 4. Diabetes mellitus. 5. Acute kidney injury on chronic kidney disease. 6. Obesity. 7. History of right thigh infection. SUGGESTIONS AND RECOMMENDATIONS: Obviously, the most likely organism causing this type of infection soon postoperatively will be Streptococcus versus Staphylococcus consequently. Vancomycin appears to be excellent choice. Obviously, Gram-negative organisms can cause the same problem and cefepime 1 g IV every 8 hours added. We will obtain baseline ESR and CRP. The patient may benefit from prolonged parenteral antibiotics if sternal wound infection suspected, which I believe there might be in view of the depth of the sternal wound. Dr. Conrad and Dr. Jenkins, thank you for requesting my suggestions. ��������������������������������������������� <ELECTRONICALLY SIGNED> ���������������������������������������� By: Franco Wong MD ��������������������������������������������� 01/25/19 0645 [id number] [id number] Franco Wong MD /nt
[2019-01-25 06:58] LABS: ALBUMIN 2.3 g/dL (3.4-5.0); CALCIUM 8.9 mg/dL (8.5-10.1); CREATININE 1.4 mg/dL (0.7-1.3); PHOSPHORUS 4.3 mg/dL (2.5-4.9); POTASSIUM 4.1 mmol/L (3.5-5.1)
--- NOTE | 2019-01-25 10:40 | NUR ---
1025 - ORDERS RECEIVED TO TRANSFER PT TO 210 - REPORT CALLED TO [facility]BBS - PLACED IN WC /S DIFFICULTY - PT PLACED SELF IN BED - TELE MONITOR APPLIED - TIFFANIE [facility]BBS INFORMED PT IN ROOM
--- NOTE | 2019-01-25 17:50 | NUR ---
ASSUMED CARE OF PATIENT AT 1022. PATIENT IS A&O X 4. PATIENT IS VERY ANXIOUS ABOUT HIS CATHETER AND FEELS THOUGH IT IS PULLING. LEG ADHESIVE WAS CHANGED AND MOVED CLOSER TO HIS GROIN. PATIENT NOTED RELIEF. PATIENT HAS A WOUND VAC IN PLACE IN HIS MIDSTERNAL CHEST AND "HEART PILLOW" TO HUG WHEN MOVING. PATIENT COMPLAINS OF PAIN AT 6/10 AND STATES THAT HE HURTS "EVERYWHERE". ASSESSMENT CHARTED. CONTINUE TO MONITOR AND FOLLOW WITH POC.
--- NOTE | 2019-01-25 17:52 | NUR ---
PATIENT RESTING COMFORTABLY IN CHAIR FOR MAJORITY OF THE DAY. PATIENT COMPLAINS OF CONTINUOUS PAIN AT 6/10. HE CALLS OUT FOR ASSISTANCE TO MOVE ANY AND ALL ITEMS ON SIDE TABLE. PATIENT'S IS AT THE BEDSIDE. PATIENT'S LINCOLN WAS REMOVED AND HE DID URINATE 200 ML OF DARK YELLOW URINE. PATIENT STATES THAT IT DID BURN. PATIENT ENCOURAGED TO DRINK MORE FLUIDS. PATIENT REFUSED PHYSICAL THERAPY. CONTINUE TO MONITOR AND FOLLOW POC.
--- NOTE | 2019-01-25 18:24 | EKG ---
[address] [place] [address] ELECTROCARDIOGRAM REPORT Name: BENNIE GRECO Room #: 210-P ADM IN M.R.#: [id number] ������������������ Admission: 01/23/19 ������������������ Attend Phys: Elmer Conrad MD Discharge: ������������������ Date of : 70 Report #: [id number] ����������������������������������������������������������������� [id number] THIS REPORT FOR: //name// [facility] Test Date: 2019-01-23 Test Time: 16:40:58 Pat Name: BENNIE GRECO Department: Room: 210 Gender: M [employer] Supervisor: Sosa COFFEY : 1970 Requested By: Regis Jenkins Order Number: [id number] MD: Gerald Grove Measurements Intervals [place] Rate: 82 P: 25 KS: 190 QRS: 8 QRSD: 94 T: 110 QT: 358 QTc: 418 Interpretive Statements Sinus rhythm Anteroseptal infarct, age indeterminate Nonspecific ST-T wave changes Low voltage in limb leads Compared to ECG 01/06/2019 07:06:45 No significant changes Electronically Signed On 01-25-2019 18:23:53 CDT by Gerald Grove [email or web address] ��������������������������������������������� <ELECTRONICALLY SIGNED> ���������������������������������������� By: Gerald Grove MD ��������������������������������������������� 01/25/19 1823 1640 1640 Gerald Grove MD /EPI
[2019-01-26 00:11] VITALS: BP 132/79
--- NOTE | 2019-01-26 05:04 | NUR ---
ASSUMED PT CARE AT 1900 WITH NO SIGN OF DISTRESS NOTED IN PT. PT IS SITTING IN CHAIR. DENIES ANY PAIN AT THIS TIME. SCHEDULED MEDS ADMINISTERED TO PT. NO SIGN OF DISTRESS NOTED. PT IS STABLE. PT IS TRANSFERRED BACK TO BED. PT IS STABLE THROUGHOUT THE NIGHT. WOUND VAC FUNCTIONING RIGHT. DENIES ANY NEEDS AT THIS TIME.
[2019-01-26 07:40] VITALS: BP 133/84
[2019-01-26 11:35] VITALS: BP 100/61
[2019-01-26 15:35] VITALS: BP 117/77
--- NOTE | 2019-01-26 16:56 | NUR ---
PT CARE ASSUMED APPROX 0700. PT ALERT AND ORIENTED X4. REPORTS INTERMITTENT STERNAL PAIN 05/24. PAIN MANAGED WITH HYDROCODONE. WEANED TO RA. PT TOLERATES RA WITH ACTIVITY WELL. REPORTS FEELING FATIGUE AFTER HALLWAY AMBULATION BUT VSS DURING AND AFTER. FENT PATCH IN PLACE TO LEFT ARM. PT COMPLIANT WITH USE OF INCENTIVE SPIROMETER. REFUSED LAXATIVES TODAY BUT AGREEABLE TO STOOL SOFTENERS. WOUND VAC TO STERNUM INTACT.IVF DC'd. IV ABT REMAINS TO POC. VANCO TROUGH TO BE COMPLETED THIS SHIFT. WILL F/U. FAMILY AT BEDSIDE AT THIS TIME. NO DISTRESS NOTED.
[2019-01-26 19:06] VITALS: BP 117/75
[2019-01-27 05:34] VITALS: BP 133/76
[2019-01-27 07:50] VITALS: BP 113/80
--- NOTE | 2019-01-27 07:59 | NUR ---
ASSUMED PT CARE AT 1900 WITH NO SIGN OF DISTRESS NOTED IN PT. PT IS ALERT AND ORIENTED AND IS SITTING IN CHAIR. SCHEDULED MEDS ADMINISTERED TO PT. VITAL SIGNS STABLE. PT IS NPO AFTER MIDNIGHT. VITAL SIGNS STABLE. DENIES ANY FURTHER NEEDS AT THIS TIME.
[2019-01-27 10:19] VITALS: BP 131/77
[2019-01-27 12:50] VITALS: BP 118/83
--- NOTE | 2019-01-27 13:50 | NUR ---
VASCULAR ACCESS NURSE ROUNDING. S/P I&D, INFECTED WOUND. CONTINUES ON IV ANTIBIOTICS. WE WILL FOLLOW ID NOTES TO SEE IF PICC LINE WILL BE NEEDED ON DISCHARGE
[2019-01-27 15:45] VITALS: BP 107/73
--- NOTE | 2019-01-27 18:39 | NUR ---
PATIENT NPO THIS AM FOR STERNAL INCISION WASHOUT. WASHOUT DONE IN OR - WOUND VAC PLACED. PT TOLERATED WELL. VSS. SINUS RHYTHM ON THE MONITOR. PRN PAIN MEDICATION GIVEN FOR STERNAL PAIN. UP TO CHAIR POST PROCEDURE. ACCUCHECKS ACHS - MOD DOSE SS GIVEN.
[2019-01-27 19:47] VITALS: BP 116/64
[2019-01-28 04:23] LABS: HEMATOCRIT 30.3 % (42.0-52.0); HEMOGLOBIN 10.2 gm/dL (14.0-18.0); MCH 28.6 pg (26.0-34.0); MCHC 33.7 g/dL (28.0-37.0); MCV 84.9 fL (80.0-100.0); RBC 3.57 mil/uL (4.50-6.00); RDW 16.3 % (10.5-14.5); WBC 7.7 thou/uL (4.0-11.0)
[2019-01-28 04:31] LABS: ALBUMIN 2.2 g/dL (3.4-5.0); CALCIUM 8.8 mg/dL (8.5-10.1); POTASSIUM 3.9 mmol/L (3.5-5.1); TOTAL BILIRUBIN 0.4 mg/dL (<0.1-1.0); TOTAL PROTEIN 6.2 g/dL (6.4-8.2)
[2019-01-28 06:10] VITALS: BP 136/67
[2019-01-28 07:30] VITALS: BP 127/79
--- NOTE | 2019-01-28 07:37 | NUR ---
ASSUME CARE 1900. PT/VITALS STABLE. FREQUENT STERNAL PAIN. FENTANYL PATCH ON LEFT UPPER BACK AND HYDROCODONE X 2 TABS FOR BREAKTHROUGH PAIN. STERNAL WOUND/WOUND VAC INTACT. ASSESSMENT CHARTED. PROGRESSING WELL WITH POC. PLAN IS TO CONTINUE TO TREAT WITH ABX. WILL CONTINUE TO MONITOR AND FOLLOW WITH POC
--- NOTE | 2019-01-28 10:31 | NUR ---
Nutrition followup: pt admitted with sternal wound infection, prior CABG. S/P washout and wound vac placement. Prior diet was carb controlled and now is regular low fat. BG 103-140, good control. A1C 5.8. Pt usual diet at home is diabetic, high protein, avoids fried foods. Add carb controlled back into diet order per pt request. Pt denies offer of dietary education. Overall irritated during visit. Recent wts 300-312#, BMI 46, extreme class 3 obesity. Low risk.
[2019-01-28 11:35] VITALS: BP 113/84
--- NOTE | 2019-01-28 12:06 | PATH ---
[facility] [address] [place] [address] PATHOLOGY RPT PROCEDURE Name: BENNIE GRECO Room #: 210-P [facility] IN M.R.#: [id number] ������������������ Admission: 01/23/19 ������������������ Date of : 70 Discharge: Report #: [id number] Path Case #: [id number] [facility] Accession Number: [id number] . 01 Material submitted: . sternum - STERNAL WOUND DEBRIDEMENT TISSUE . 01 Clinical history: . Sternal wound infection . 02 Diagnosis: Sternal wound, debridement: - Fragments of fibroadipose tissue associated with extensive fat necrosis and marked acute inflammation as well as fibrinoid degeneration, consistent with wound tissue. (IUV:operations representative; 01/27/2019) MBR/01/27/2019 . 02 Electronically signed: . Juju Johnson MD, Pathologist NPI- [id number] . 01 Gross description: . The specimen is received in formalin, labeled "Topher, Christopher, sternal debridement tissue", are several cameron-yellow lobulated, partially necrotic, edematous fragments of adipose tissues measuring 6.2 x 4.0 x 1.6 cm. Few fragments show possible fat necrosis. Portfolio Mgr tissue is submitted in A1. (SWS; 01/24/2019) SHS/SHS . 02 Pathologist provided ICD-10: M79.89 . 02 CPT . 981175 Specimen Comment: A courtesy copy of this report has been sent to Specimen Comment: [phone], , . Specimen Comment: Report sent to ,DR OCAMPO / DR WIN Performed at: [address], [place] [id number] MD Dakotah Chris MD Phone: [phone] Performed at: [address] [id number] MD Juju Johnson MD Phone: [phone]
--- NOTE | 2019-01-28 12:19 | NUR ---
met with patient and and discussed dc planning. Patient aware possible home infusion. reports she has done in past many years ago but open to teaching. He is aware [facility] does not come for ever infusion. Patient reports agreeable to and no preference for agency. Requested [facility] review. Patient reports he is eager for home but still in planning regarding incision either wound vac or some closure sx. Referral to [facility] to review. Verified address and PCP Dr Jack Mcintyre.
[2019-01-28 15:45] VITALS: BP 136/80
--- NOTE | 2019-01-28 18:15 | NUR ---
ASSUMED CARE AT 0700, AWAKE AND ALERT IN CHAIR, BEING MEDICATED FOR PAIN BY OFF GOING NURSE. WOUND VAC INTACT TO MID STERNUM. NO OTHER COMPLAINTS. AMBULATED IN COLLINS SEVERAL TIMES TODAY. CONTINUES WITH IS. NPO AFTER MN FOR DEBRIDEMENT AND NEW WOUND VAC IN AM.
[2019-01-28 19:37] VITALS: BP 134/78
[2019-01-29 00:06] VITALS: BP 135/67
--- NOTE | 2019-01-29 02:53 | NUR ---
ASSUMED PT CARE AT 1900/ PT IN CHAIR, A/OX4, VITAL SIGNS STABLE, ASSESSMENT CHARTED. MIDSTERNAL CHEST PAIN ADEQUATELY MANAGED WITH PAIN MEDICATION. NPO AFTER MIDNIGHT FOR POSSIBLE PREOCEDURE IN AM. PT RESTED WELL THROUGH THE NIGHT. CALLS APPROPRIATELY. WOUND VAC IN PLACE, SUNCTIONING APPROPRIATELY. PROGRESSING TOWARD PLAN OF CARE. WILL CONTINUE TO MONITOR.
[2019-01-29 04:22] VITALS: BP 130/73
[2019-01-29 07:11] VITALS: BP 143/80
[2019-01-29 15:14] VITALS: BP 139/75
[2019-01-29 15:20] VITALS: BP 130/82
--- NOTE | 2019-01-29 19:06 | NUR ---
WASH OUT AND DEBRIDEMENT OF STERNAL WOUND TODAY AND NEW WOUND VAC APPLIED. PLASTIC SURGEON SPOKE WITH PATIENT TODAY AND EDUCATED ON NEED FOR MORE PROTIEN IN DIET SO THAT HE CAN HEAL THIS WOUND. PAIN CONTROLLED WITH FENTANYL PATCH AND PO HYDROCODONE.
[2019-01-29 20:05] VITALS: BP 134/76
--- NOTE | 2019-01-30 03:20 | NUR ---
ASSUMED PT CARE AT 1900. PT A/OX4, VITAL SIGNS STABLE, ASSESSMENT CHARTED. PT IN CHAIR RESTING. PAIN ADEQAUTELY MANAGED WITH PAIN MEDICATION. NO OTHER COMPLAINTS OF PAIN. WOUND VAC IN PLACE, SANGUINEOUS DRAINAGE. PT RESTED WELL THROUGH THE NIGHT. PROGRESSING TOWARD PLAN OF CARE. WILL CONTINUE TO MONITOR.
[2019-01-30 04:27] VITALS: BP 147/80
[2019-01-30 08:02] VITALS: BP 126/74
[2019-01-30] MEDS ORDERED: HYDROCODON-ACE1 EAC7 PO (08:12)
[2019-01-30] MEDS ORDERED: ACETAMINOPHEN325 M1 PO (08:12)
[2019-01-30] MEDS ORDERED: LANTUS100 UNIT/M SUBQ (08:13)
[2019-01-30] MEDS ORDERED: NOVOLOG100 UNIT/1 SUBQ (08:13)
--- NOTE | 2019-01-30 11:20 | NUR ---
Pt refusing oral supplements at this time to increase protein intake. Spoke with logistics tech and will allow double meat portions and additional protein protein sources on trays despite current dietary restrictions. Prealbumin level 9.7, plastics wants in the teens prior to doing flap for sternal wound. This RN will clear with Dr Romo when out of surgery. BG 86-221, needs tight control. RD suggests use of Ensure max BID instead to prevent excessive calorie/Na+ provisions. Pt feels they will make him sick. Plastics to visit with pt later today.
[2019-01-30 11:25] VITALS: BP 111/57
--- NOTE | 2019-01-30 14:35 | NUR ---
FOLLOWING FOR DC PLANNING. CLINICAL INFO REVIEWED. DISCUSSED WITH DR. HAUSER AND CTS HAYDER FROST. STERNAL WOUND INFECTION POST CABG S/P WASHOUT/DEBRIDEMENT X3 WITH WOUND VAC ON. PLAN FOR OR WASHOUT AGAIN 01/31/19. PLAN FOR FLAP CLOSURE PER PLASTICS ([facility]) NEXT WEEK. PER CTS, NEEDS CONTINUED INPT CARE FOR TIGHT GLUCOSE CONTROL, PROTEIN OPTIMIZATION. IF PLAN CHANGES TO DC PT HOME WITH WOUND VAC AND HOME OUTPT IV ABX, [facility] CAN STAFF HH REFERRAL AND [facility] IN NETWORK WITH PT'S [employer] INSURANCE. CM TO FOLLOW.
[2019-01-30 16:37] VITALS: BP 127/83
--- NOTE | 2019-01-30 16:46 | NUR ---
ASSESSMENT CHARTED - MEDS PER DEC - GIVEN HYDROCODONE FOR PAIN X 1 DOSE WITH GOOD RELIEF - NO FURTHER REQUESTS FOR PAIN MEDICATION. CYNTHIA DIET AND FLUIDS - PATIENT TO HAVE HIGH PROTIEN DIET - FOR WOUND HEALING - SEEN BY DISK SHARPENER TODAY FOR TRAYS AND WILL RECIEVE PROTIEN DRINK ENSURE MAX WITH EACH MEAL. PATIENT AMBULATED IN THE HALLS. UP IN THE CHAIR FOR THE DAY - WOUND VAC REMAINS INSITU. HARVEST SITES TO LEFT LEG CONTINUE TO HEAL. PT TO GO TO SURGERY TOMORROW TO HAVE WOUND CLEANED AND DEBREDED AGAIN. NO CO'S AT THE PRESENT TIME.
[2019-01-30 20:47] VITALS: BP 119/73
[2019-01-31 06:05] VITALS: BP 124/65
[2019-01-31 06:58] VITALS: BP 127/77
--- NOTE | 2019-01-31 07:39 | NUR ---
ASSESSMENTS CHARTED. NPO SINCE MIDNIGHT EXCEPT SIP WITH MED. DENIED PAIN. WOUND VAC IN PLACE WITH GOOD SEAL UNTIL PATIENT STOOD ON HOSE AND DISCONNECTED THE PUMP FROM THE DRESSING. ATTEMPTED TO RESEAL DRESSING, PREOP CALLED FOR HIM BEFORE NEW DRESSING COULD BE OBTAINED. PATIENT WENT FOR DEBRIDMENT AND NEW DRESSING.
--- NOTE | 2019-01-31 11:57 | NUR ---
Pt had wound cleaned out this morning. Case discussed with the care team including CTS and ID. Wash out planned again for Sunday morning with possible dc to home with IV ancef 2gm q8hrs x 1 week. Pt encouraged to increased protien supplements. Portable wound vac being ordered by CTS. Dc shoe lay out planner faxing facesheet and clinical to [facility] and [employer] for benefit check and prior auth with [employer]. Plastics to reeval for flap early next week. Will follow. Both are in network with his [employer] plan.
[2019-01-31 12:00] VITALS: BP 158/75
[2019-01-31 12:40] LABS: ALBUMIN 2.5 g/dL (3.4-5.0); CALCIUM 9.3 mg/dL (8.5-10.1); CREATININE 1.1 mg/dL (0.7-1.3); POTASSIUM 4.9 mmol/L (3.5-5.1); TOTAL BILIRUBIN 0.4 mg/dL (<0.1-1.0); TOTAL PROTEIN 6.5 g/dL (6.4-8.2)
--- NOTE | 2019-01-31 12:41 | NUR ---
FAXED REFERRAL TO [facility] SPOKE WITH NIVIA IN ADM. SHE RECEIVED AND WILL CHECK BENEFITS. DCP TO FOLLOW.
[2019-01-31 16:00] VITALS: BP 145/84
--- NOTE | 2019-01-31 17:41 | NUR ---
ASSESSMENT CHARTED - MEDS PER DEC - NO CO'S OF PAIN OR NAUSEA. CYNTHIA DIET AND FLUIDS - ACCUCHECKS COVERED PER SSI. PT TO SURGERY THIS AM AND HAD WOUND VAC REPLACED. HAS DONE WELL SINCE ARRIVAL BACK ON FLOOR - WOUND VAC REMAINS INTACT. PT HAS BEEN UP TO THE CHAIR - AMBULATED IN THE HALLS. HARVEST SITED TO L LEG CONTINUE TO HEAL. PATIENT WITH NO CO'S AT THE PRESENT TIME.
[2019-01-31 20:11] VITALS: BP 140/87
[2019-02-01 00:37] VITALS: BP 138/83
--- NOTE | 2019-02-01 01:08 | NUR ---
ASSUMED PT CARE AT 1900. PT A/OX4, VITAL SIGNS STABLE, ASSESSMENT CHARTED. NO COMPLAINTS OF PAIN. WOUND VAC IN PLACE. PT RECIEVED PORTABLE WOUND VAC. ENCOURGAED TO WALK AROUND. PT RESTED WELL, NO FURTHER COMPLAINTS. CALL LIGHT WITHIN REACH. CALLS APPROPRIATELY. WILL CONTINUE TO MONITOR.
[2019-02-01 05:36] VITALS: BP 137/81
[2019-02-01 06:38] LABS: ALBUMIN 2.3 g/dL (3.4-5.0); CALCIUM 7.8 mg/dL (8.5-10.1); CREATININE 0.9 mg/dL (0.7-1.3); TOTAL BILIRUBIN 0.4 mg/dL (<0.1-1.0); TOTAL PROTEIN 5.6 g/dL (6.4-8.2)
[2019-02-01 06:40] LABS: POTASSIUM 3.2 mmol/L (3.5-5.1)
[2019-02-01 08:17] VITALS: BP 102/79
[2019-02-01 12:25] VITALS: BP 121/75
[2019-02-01 15:56] VITALS: BP 117/77
--- NOTE | 2019-02-01 18:47 | NUR ---
PT SAT UP IN CHAIR FOR MOST OF THE SHIFT AND AMBULATED COLLINS WELL. DENIES PAIN OR SOA.
[2019-02-01 19:05] VITALS: BP 120/68
--- NOTE | 2019-02-02 00:40 | NUR ---
ASSESSMENTS CHARTED. PATIENT UP INDEPENDENTLY. AMBULATING IN HALLWAY TWICE DURING THIS SHIFT. SLEEPING IN RECLINER. PLAN IS FOR WOUND CLEAN OUT ON SUNDAY. WOUND VAC IN PLACE AND SEALED WELL
[2019-02-02 04:05] VITALS: BP 106/68
[2019-02-02 08:00] VITALS: BP 115/73
[2019-02-02 12:00] VITALS: BP 109/69
[2019-02-02 17:44] VITALS: BP 142/87
[2019-02-02 19:46] VITALS: BP 139/80
--- NOTE | 2019-02-02 19:56 | NUR ---
ASSUMED CARE OF PT AT 0700. PT IS ALERT AND ORIENTED X4. PT IS UP AD MARI AND REPORTED NO PAIN, UNLESS HE COUGHS OR HICCUPS. PT USES SPLINT TO MANAGE PAIN. INCISION ON CHEST SHOWED NO DRAINAGE OR SIGNS OF INFECTION. WOUND VAC CANNISTER WAS REPLACED AT 0700 BY PT. PT REMAINED NORMAL SINUS RHYTHM AND HAD VITALS WITHIN NORMAL LIMITS. PT HAD URINE OUTPUT OF 1500 WITH NO REPORTS OF DYSURIA. WILL CONTINUE TO MONITOR PT.
--- NOTE | 2019-02-02 20:03 | NUR ---
AGREE WITH ASSESSMENTS AND NOTES, BY STUDENT NURSE JUDIE, FOR THIS PT. RENUKA POTTER
--- NOTE | 2019-02-03 01:51 | NUR ---
ASSESSMENTS CHARTED. PATIENT NPO SINCE MIDNIGHT. PERFORMED TWO MORE WALKS ON THE UNIT, EACH WALK WAS SEVERAL LAPS AROUND THE UNIT. PLAN OF CARE TO GO BACK TO SURGERY IN AM FOR WASHOUT AND POSSIBLE PLASTIC SURGERY TO CLOSE CHEST. COMPLAINED OF PAIN ONCE DURING SHIFT. DOSED CHARTED.
[2019-02-03 07:16] VITALS: BP 112/69
[2019-02-03 11:00] VITALS: BP 106/72
--- NOTE | 2019-02-03 16:07 | NUR ---
tenative plan for procedure in am by Dr Maldonado. Sp with VIGOUREUX PRINTER with CTS. Cont plan for home at dc and possible home infusion. If need for home wound vac the vac with be disposable. [employer] following.
--- NOTE | 2019-02-03 16:53 | O ---
[facility] [place] [address] OPERATIVE REPORT Name: BENNIE GRECO Room #: 210-P ADM IN M.R.#: [id number] Admission: 01/23/19 ������������������ Attend Phys: Elmer Conrad MD Discharge: ������������������ Date of : 70 Report #: [id number] THIS REPORT FOR: //name// CC: Elmer Santiago [facility] DATE OF SERVICE: 01/29/2019 PREOPERATIVE DIAGNOSIS: Sternal wound infection. POSTOPERATIVE DIAGNOSIS: Sternal wound infection. SURGEON: Regis Jenkins MD ANESTHESIA: General. OPERATION: Open debridement of sternal wound infection and replacement of wound VAC dressing. INDICATION: The patient is a 48-year-old with sternal wound infection status post coronary artery bypass surgery. The patient is an inpatient currently and has been treated with wound VAC. Initial drainage revealed Staph aureus. This has proven to be methicillin-sensitive. Wound VAC was replaced 2 days ago. We have consulted with a plastic surgeon for eventual wound closure. This surgeon has asked us to obtain bone cultures before we can proceed with PEG flap closure. FINDINGS AND TECHNIQUE: After general anesthesia was established, the wound VAC sponge was removed. There was granulation tissue starting to line the upper layers of the wound. The bone itself was beginning to be covered with granulation tissue as well. All of the granulation tissue on the bone itself was debrided and then I was able to take samples of bone from the left sternal half for culture. Debridement was done of the entire wound measuring 26 cm x 8.5 cm wide x 5 cm deep, which include skin, subcutaneous tissue and bone. When the sharp debridement of this area was complete and the bone was trimmed, then the Pulsavac was used for lavage. When the Pulsavac was finished, areas of fibrinous debris or avascular regions were debrided sharply. When hemostasis was satisfactory, the wound VAC was then replaced and the [facility] [address] [place] [address] OPERATIVE REPORT Name: BENNIE GRECO Room #: 210-P ADM IN ..#: [id number] Admission: 01/23/19 ������������������ Attend Phys: Elmer Conrad MD Discharge: ������������������ Date of : 70 Report #: [id number] patient was taken to the recovery area in satisfactory condition. All counts were reported as correct. ��������������������������������������������� <ELECTRONICALLY SIGNED> ���������������������������������������� By: Regis Jenkins MD ��������������������������������������������� 02/03/19 1653 1636 1846 Regis Jenkins MD /nt
--- NOTE | 2019-02-03 16:53 | O ---
[facility] [place] [address] OPERATIVE REPORT Name: BENNIE GRECO Room #: 210-P ADM IN M.R.#: [id number] Admission: 01/23/19 ������������������ Attend Phys: Elmer Conrad MD Discharge: ������������������ Date of : 70 Report #: [id number] THIS REPORT FOR: //name// CC: Elmer Santiago [facility] DATE OF SERVICE: 01/31/2019 PREOPERATIVE DIAGNOSIS: Sternal wound infection. POSTOPERATIVE DIAGNOSIS: Sternal wound infection. OPERATION: Debridement of sternal wound and replacement of wound VAC. SURGEON: Regis Jenkins MD ANESTHESIA: General. INDICATIONS: The patient is a 48-year-old who had coronary artery bypass surgery approximately one month ago at approximately the 3-week time. The patient returns with drainage from the sternal wound and he was found to have methicillin-sensitive Staph infection of the sternal wound that extended to the bone and required removal of wires, sternal debridement and wound VAC placement. We are continuing to change the VAC in the operating room with debridement with the hope that we can eventually use a pectoralis flap for muscle closure. FINDINGS AND TECHNIQUE: After general anesthesia was established, the old wound VAC sponge was removed. The wound measures approximately 26 cm long x 8 cm wide x 6 cm deep. Sharp debridement was done of all layers including skin, subcutaneous tissue, fascia and sternal bone (both inner and outer tables). Rongeur and bone rasp were used to freshen the sternal edges after the granulation tissue was removed. When the sharp debridement was complete, then Pulsavac was used for lavage. When this was complete, the wound appeared relatively clean. The wound VAC sponge was replaced and placed to suction with good seal. The patient tolerated all of this well and was taken to the recovery area in good condition. Our hope is that we can allow the patient to go home with wound [facility] [address] [place] [address] OPERATIVE REPORT Name: VANNESA GRECOFELIPAMIKE Swan Room #: 210-P [facility] IN [facility].#: [id number] Admission: 01/23/19 ������������������ Attend Phys: Elmer Conrad MD Discharge: ������������������ Date of : 70 Report #: [id number] and return as needed for wound VAC changes and sternal debridement until we can ultimately close the chest. ��������������������������������������������� <ELECTRONICALLY SIGNED> ���������������������������������������� By: Regis Jenkins MD ��������������������������������������������� 02/03/19 1653 0937 1004 Regis Jenkins MD /nt
--- NOTE | 2019-02-03 16:53 | O ---
[facility] [place] [address] OPERATIVE REPORT Name: BENNIE GRECO Room #: 210-P ADM IN M.R.#: [id number] Admission: 01/23/19 ������������������ Attend Phys: Elmer Conrad MD Discharge: ������������������ Date of : 70 Report #: [id number] THIS REPORT FOR: //name// CC: Elmer Santiago [facility] DATE OF SERVICE: 01/27/2019 PREOPERATIVE DIAGNOSIS: Sternal wound infection. POSTOPERATIVE DIAGNOSIS: Sternal wound infection. OPERATION: Debridement of sternal wound infection and replacement of wound VAC. SURGEON: Regis Jenkins MD ANESTHESIA: General. INDICATIONS: The patient is a 48-year-old who approximately 3-4 weeks ago had coronary artery bypass surgery. The patient had done well for 3 weeks or so and then had the appearance of drainage from the sternum. The patient was taken to the operating room with concerns about sternal drainage and was found indeed to have sternal wound infection. Cultures at this point are indicative of methicillin-sensitive Staphylococcus aureus. FINDINGS AND TECHNIQUE: After general anesthesia was established, the sternal dressing was removed. The old wound VAC sponge was taken out. The wound was largely clean, but there were areas of avascular tissue primarily along the left sternal edge and in the subcutaneous fat. These areas were debrided sharply, also bone was curetted. Entirety of the wound measured approximately 25 x 5 cm and included skin, subcutaneous tissue and sternal bone. No areas of undrained pus were seen, but there were some areas of relatively avascular tissue. When the sharp debridement was finished, the Pulsavac was used to cleanse the wound. When this was complete, sharp debridement was done one more time back to what we thought was good bleeding tissue and then, the wound VAC was reapplied. All counts were reported as correct. The patient tolerated the procedure well and was taken to the recovery area in good condition. We anticipate that myocutaneous pectoralis flaps will be needed to close the wound as it was quite organized below the sternal table. ��������������������������������������������� <ELECTRONICALLY SIGNED> ���������������������������������������� By: Regis Jenkins MD ��������������������������������������������� 02/03/19 1653 1525 1844 Regis Jenkins MD /nt
--- NOTE | 2019-02-03 18:29 | NUR ---
PT CARE ASSUMED APPROX 0700. PT ALERT AND ORIENTED X4. DENIED PAIN AND SOA MOST OF SHIFT. C/O PAIN AFTER HR RETURNED FROM PACU POST I&D OF STERNAL WOUND WITH WOUND VAC CHANGE. PT RETUNRED AND REPORTED PAIN 8/. PAIN MANAGED WITH FENT AND HYDRCODODNE. WOUND VAC WAS CHANGED OUT TO LARGER KCI VAC WITH HAYDER LOPEZ AT BEDSIDE PER HIS ORDER. LATER THIS EVENING VAC MALFUCTIONED DUE TO BLOCKAGE. ZAKIYA WAS NOTIFIED AND REQUESTED THAT VAC HOSE BE MOVED USING STERILE TECHNIQUE. HOSE WAS MOVED AND VAC IS FUNCTIONING PROPERLY AT THIS TIME. PT'S IS AT BEDSIDE. BOTH DENY QUESTIONS OR CONCERNS REGARDING POC. CONSENT OBTAINED FOR WOUND FLAP CLOSURE TOMORROW. PT IS NPO AFTER MIDNIGHT. REFUSED LANTUS THIS EVENING. VSS. PT HAS STEADY GAIT AT THIS TIME. NO DISTRESS NOTED.
[2019-02-04] VITALS (8 sets, daily range): BP systolic 104–162; BP diastolic 64–82
--- NOTE | 2019-02-04 03:32 | NUR ---
ASSESSMENTS CHARTED. PATIENT IS TIRED AND IN PAIN AFTER TODAY'S DEBRIDMENT SURGERY. C/O PAIN 05/24. PATIENT NPO SINCE MIDNIGHT FOR PLASTIC SURGERY IN THE AM TO CLOSE CHEST WOUND. CONSENT SIGNED FOR PROCEDURE.
--- NOTE | 2019-02-04 14:32 | NUR ---
Phys reports patient interested in facility ([facility]), rather than home. Met with patient in ICU post procedure and at bedside. Patient upset with conversation regarding a dc to facility and not home. Patient and adament to return home at dc and not to another facility. Patient reports "I did not feel comfortable returning home with this open..(pointing to his chest). At this time cont plan for home with HH and home infusion. [facility] home infusion in network with insurance. [facility] in network. Referrals to [facility] for home with HH.
--- NOTE | 2019-02-04 19:00 | NUR ---
TO ICU AT 1330 FROM PACU. AAAOX4 PLEASANT AND DROWSY. STERNAL WOUND WITH WOUND VAC INTACT AND 3 MALIKA'S TO BULB SUCTION. VOIDED PER URINAL. GOOD APPETITE. NO C/O NAUSEA. PAIN CONTROLED WITH MEDICATION.
[2019-02-05] VITALS (17 sets, daily range): BP systolic 101–154; BP diastolic 60–80
[2019-02-05 05:57] LABS: HEMOGLOBIN 9.1 gm/dL (14.0-18.0); MCH 28.6 pg (26.0-34.0); MCHC 33.5 g/dL (28.0-37.0); MCV 85.4 fL (80.0-100.0); RBC 3.16 mil/uL (4.50-6.00); RDW 15.8 % (10.5-14.5); WBC 8.8 thou/uL (4.0-11.0)
[2019-02-05 06:07] LABS: CALCIUM 8.8 mg/dL (8.5-10.1); CREATININE 1.3 mg/dL (0.7-1.3); POTASSIUM 4.1 mmol/L (3.5-5.1)
--- NOTE | 2019-02-05 06:36 | NUR ---
Pt slept well through the night with stable VS. PRN fentanyl and hydrocodones given for chest "soreness" with desired effects achieved. Voiding per urinal without difficulty and taking PO with no c/o nausea. MALIKA drainage minimal and no wound vac drainage observed. Am lab results noted, continue with POC.
--- NOTE | 2019-02-05 11:08 | NUR ---
Nutrition: pt in ICU S/P flap closure of sternal wound. Labs noted. Pt continues to have good appetite. Providing double protein portions at meals as well as ensure max TID. Pt doing well with the supplements. BG is controlled. Weights showing a 25# decline from admit if accurate. Has been in negative fluid balance and still with 1+ generalized edema. BMI 42.8, extreme class 3 obesity. Pt voices no diet related questions. Planned D/C within a few days. Keep at low risk with nutrition interventions in place.
--- NOTE | 2019-02-05 15:49 | NUR ---
TRANSFERED FROM ICU TO CCU VIA BED. AAAOX4 VERY PLEASANT AND COOPERTIVE. LUNGS CLEAR ON ROOM AIR. STERNAL WOUNDVAC INTACT WITH ZERO OUTPUT. MALIKA'S X3 TO BULB SUCTION WITH SERO SANG OUTPUT. VOIDS CLEAR YELLOW URINE PER URINAL. FAIR APPETITE NO NAUSEA. GOOD PAIN CONTROL WITH MEDICATIONS. FOLLOWS STERNAL PRECAUTIONS WHEN REPOSITIONING AND STANDING. IV RIGHT UPPER ARM PICC DOUBLE LUMEN.
--- NOTE | 2019-02-05 17:39 | NUR ---
PT TRANSFERED FROM ICU. ALERT AND ORIENTED. WOUNDVAC INTACT. HAS THREE MALIKA DRAIN. MEDS GIVEN ORDERED. STERNUM PRECAUTION ENFORCED. WILL CONTINUE TO MONITOR.
[2019-02-06 04:25] VITALS: BP 99/62
--- NOTE | 2019-02-06 07:24 | NUR ---
ASSUMED PT CARE AT 1900. VSS. PT A&0X4. PT RATED PAIN AT 4/10 BUT REFUSED HYDROCODONE, HE SAID HE COULD HANDLE THE PAIN HE FEARED HE WOULD GET ADDICTED TO PAIN MEDS. PT HAS GOOD URINE OUTPUT; HAD OVER 10O0ML OUT THIS SHIFT. PT IS STRONG AND STEADY ON HIS FEET. BREATHING FINE AND SATING WELL ON ROOM AIR. NO FURTHER COMPLAINTS OR CONCERNS, DRESSINGS REMAIN CDI, MALIKA DRAINS OUTPUT ARE DOCUMENTED. PT IS STABLE, WILL CONTINUE TO MONITOR PER POC.
[2019-02-06 07:35] VITALS: BP 101/64
[2019-02-06 11:15] VITALS: BP 100/64
--- NOTE | 2019-02-06 12:16 | O ---
[facility] [place] [address] OPERATIVE REPORT Name: BENNIE GRECO Sosa Room #: 213-P ADM IN M.R.#: [id number] Admission: 01/23/19 ������������������ Attend Phys: Elmer Conrad MD Discharge: ������������������ Date of : 70 Report #: [id number] THIS REPORT FOR: //name// CC: Elmer Santiago [facility] DATE OF SERVICE: 02/03/2019 PREOPERATIVE DIAGNOSIS: Sternal wound infection. POSTOPERATIVE DIAGNOSIS: Sternal wound infection. OPERATION: Open debridement of sternal wound infection and replacement of wound VAC dressing. SURGEON: Regis Jenkins M.D. ANESTHESIA: General. INDICATIONS: The patient is a 48-year-old with coronary artery bypass surgery approximately a month ago. The patient returned with a sternal wound infection approximately a week ago and in the hospital, we have been changing the wound VAC in preparation for sternal flap closure by Plastic Surgery. FINDINGS AND TECHNIQUE: After general anesthesia was established, the VAC sponge was removed. The wound was lined largely with granulation tissue and no evidence of purulence. The wound was debrided with granulation tissue starting to develop on the open unopposed edges of the sternum. The sternum was debrided back with a rongeur and the rasp. In total, the wound measured approximately 26 cm long x 8 cm wide x 6 cm deep and encompassed skin, subcutaneous tissue, fascia and bone. All layers were debrided sharply with 15 blade back to bleeding tissue, as mentioned, the bone was chiseled back, and so we were confident that there was bleeding bone in all areas. Once the sharp debridement was finished, then the Pulsavac was used to wash out the wound again. Any areas that appeared nonviable were debrided sharply once more. Hemostasis was ascertained and then the wound VAC was placed with the sponge in the wound and the adhesive plastic covering it. The VAC was placed to suction and the seal was satisfactory. The patient tolerated the procedure well and was taken to the recovery area in good condition. It should be mentioned that we had a visit by our plastic surgeon who was happy [address] [address] OPERATIVE REPORT Name: BENNIE GRECO Room #: 213-P [facility] IN M.R.#: [id number] Admission: 01/23/19 ������������������ Attend Phys: Elmer Conrad MD Discharge: ������������������ Date of : 70 Report #: [id number] with the progress of the wound and is making plans for pectoral flap coverage. All counts reported as correct. ��������������������������������������������� <ELECTRONICALLY SIGNED> ���������������������������������������� By: Regis Jenkins MD ��������������������������������������������� 02/06/19 1216 1703 1723 Regis Jenkins MD /nt
--- NOTE | 2019-02-06 12:16 | NUR ---
NOTIFIED ADM. AT [facility] OF PT. DISCHARGING TOMORROW 02/07 TO HOME. THEY WILL START VISITS ON SUNDAY AND NOTIFY PT. OF TIME.
--- NOTE | 2019-02-06 13:01 | NUR ---
All parties anticipating dc to home tomorrow with home health and infusion services in place with [facility] and [facility]. Both agencies have auth in place for services per [facility]. The [facility] liason was here Sunday to do teaching with pt's spouse. Pt's spouse is familiar as she was on home iv atb in the recent past. Care team updated.
[2019-02-06 13:09] VITALS: BP 100/64
[2019-02-06 15:15] VITALS: BP 101/62
--- NOTE | 2019-02-06 16:22 | NUR ---
FAXED ID PROG. NOTE AND PLASTIC SURGEONS NOTES TO [facility] THEY RECEIVED INFO. SPOKE WITH NIVIA IN ADM. THAT PT. TO DC TOMORROW.
--- NOTE | 2019-02-06 17:06 | NUR ---
ASSESSMENT CHARTED - MEDS PER DEC - NO CO'S OF PAIN OR NAUSEA - UP AD MARI IN ROOM. DRESSING TO INCISION C/D/I.(WOUND VAC) MALIKA DRAINS REMAIN INSITU AND PATENT. CYNTHIA DIET AND FLUIDS. HOPING TO GO HOME TOMORROW. NO CO'S AT PRESENT .
[2019-02-06 19:53] VITALS: BP 111/63
--- NOTE | 2019-02-07 05:37 | NUR ---
ASSUMED PT CARE AT 1900. VSS. PT A&0X4. COMPLAINED OF PAIN BUT DID NOT WANT ANY PAIN PILLS, STATED THAT HE CAN HANDLE THE PAIN AND THE FENTANYL PATCH IS ALL THE PAIN MED HE NEEDS. PLASTIC SURGEON CAME IN LAST NIGHT TO SEE THE PATIENT, DRAIN #1 AND STERNAL WOUNDVAC D/C. GOT DRESSING CHANGE ORDERS FOR DRAIN #2 AND #3. DRESSING CHANGE COMPLETED BY MYSLEF YESTERDAY. SITE IS [facility]. PT IS STABLE, SLEPT WELL ALL NIGHT. NO FURTHER COMPLAINTS, PT ANTICIPATES D/C TODAY.
[2019-02-07 05:51] VITALS: BP 120/77
[2019-02-07 07:25] VITALS: BP 113/65
[2019-02-07] MEDS ORDERED: DURAGESIC1 EAC4 TRANSDERM (08:58)
[2019-02-07] MEDS ORDERED: NOVOLOG100 UNIT/1 SUBQ (08:58)
[2019-02-07] MEDS ORDERED: CARVEDILOL25 MG PO (08:58)
[2019-02-07] MEDS ORDERED: CEFAZOLIN2 GM/100 M IV (08:58)
[2019-02-07] MEDS ORDERED: ASPIR 8181 MG PO (08:58)
[2019-02-07] MEDS ORDERED: LANTUS100 UNIT/M SUBQ (08:58)
[2019-02-07] MEDS ORDERED: HYDROCODON-ACE1 EAC7 PO (08:58)
[2019-02-07] MEDS ORDERED: ATORVASTATIN CA40 MG PO (08:58)
[2019-02-07 10:11] VITALS: BP 100/64
--- NOTE | 2019-02-07 10:20 | NUR ---
DISCONTINUE TELE AND PT WILL BE DISCHARGED TO HOME WITH HOME HEALTH. PT WILL ALSO BE DISCHARGED WITH CURRENT PICC LINE IN PLACE, DRESSING CHANGED TODAY BY IV TEAM. PT UNDERSTANDS ALL DISCHARGE AND FOLLOW UP ORDER.
--- NOTE | 2019-02-07 12:23 | NUR ---
Aircraft Sheet Metal Mechanic visited with the pt at bedside this morning. Dc planning efforts reveiwed and choice letter signed by pt. [facility] and [facility] confirmed for start of care today for iv atb /supply delievery and nursing visit tomorrow. Pt states he and his feel comfortable with the dc plan. They have been instructed on his iv atb administration and drain care. He is relieved to be able to get out of the hospital and get back home. Support provided. Nursing updated. Picc line dsg change to be done prior to dc today. Case closed.
== END 2019-02-07 11:26 | disposition home health service (06) | DRG 856 ==
LOC: 2N 15:56 → ICU 15:56 → 2N 16:11 → ICU 01-24 10:54 → 2N 01-25 11:19 → ICU 02-04 13:16 → 2N 02-05 15:47
PROVIDERS: Hospitalist; Physician Assistant; Plastic Surgery; Surgery Vascular Surgery; ADMIT Hospitalist
DX: T81.41XA Infection following a procedure, superficial incisional surgical site, initial encounter (principal); N17.0 Acute kidney failure with tubular necrosis; L03.313 Cellulitis of chest wall; E46 Unspecified protein-calorie malnutrition; Z68.41 Body mass index [BMI] 40.0-44.9, adult; E78.5 Hyperlipidemia, unspecified; E86.0 Dehydration; I95.9 Hypotension, unspecified; B95.61 Methicillin susceptible Staphylococcus aureus infection as the cause of diseases classified elsewhere; I25.10 Atherosclerotic heart disease of native coronary artery without angina pectoris; E11.22 Type 2 diabetes mellitus with diabetic chronic kidney disease; N18.9 Chronic kidney disease, unspecified; E66.01 Morbid (severe) obesity due to excess calories; F32.9 Major depressive disorder, single episode, unspecified; F41.9 Anxiety disorder, unspecified; E78.00 Pure hypercholesterolemia, unspecified; I12.9 Hypertensive chronic kidney disease with stage 1 through stage 4 chronic kidney disease, or unspecified chronic kidney disease; Z79.82 Long term (current) use of aspirin; Z95.5 Presence of coronary angioplasty implant and graft; Z95.1 Presence of aortocoronary bypass graft; I25.2 Old myocardial infarction; Z82.49 Family history of ischemic heart disease and other diseases of the circulatory system; Z87.891 Personal history of nicotine dependence; Z79.899 Other long term (current) drug therapy; Y83.2 Surgical operation with anastomosis, bypass or graft as the cause of abnormal reaction of the patient, or of later complication, without mention of misadventure at the time of the procedure; Y92.89 Other specified places as the place of occurrence of the external cause
CPT/HCPCS: 10078; 10081; 10797; 27000; 50010; 50101; 50366; 50386; 50455; 50643; 50969; 50970; 50972; 51301; 51412; 53078; 53358; 56525; 56527; 56668; 57092; 57093; 57103; 57160; 62110; 62900; 65131; 70005

== ENCOUNTER 2019-05-02 14:52 | Inpatient (IN) | payer OTHER ==
[~2019-05-02] VITALS: Ht 175.3 cm; Wt 131.1 kg
[~2019-05-02 14:52] MED LIST changes: +ACETAMINOPHEN325 M1 PO; +ASPIR 8181 MG PO; +CARVEDILOL25 MG PO; +CEFAZOLIN2 GM/100 M IV; +DURAGESIC1 EAC4 TRANSDERM; +HYDROCODON-ACE1 EAC7 PO; +LANTUS100 UNIT/M SUBQ; +NOVOLOG100 UNIT/1 SUBQ
[2019-05-02 14:56] VITALS: BP 120/84
[2019-05-02 16:37] LABS: ABSOLUTE NEUTROPHILS 4.7 thou/uL (1.4-8.2); BASOPHILS 1.3 % (0.0-2.0); EOSINOPHILS 3.7 % (0.0-3.0); HEMATOCRIT 40.2 % (42.0-52.0); LYMPHOCYTES 24.3 % (24.0-44.0); MCH 24.7 pg (26.0-34.0); MCHC 32.2 g/dL (28.0-37.0); MCV 76.7 fL (80.0-100.0); MONOCYTES 7.5 % (1.0-8.0); PLATELET COUNT 302 thou/uL (150-400); POLYS 63.2 % (36.0-66.0); RBC 5.25 mil/uL (4.50-6.00); RDW 16.8 % (10.5-14.5); WBC 7.5 thou/uL (4.0-11.0)
[2019-05-02 16:45] LABS: CALCIUM 9.5 mg/dL (8.5-10.1); CREATININE 1.1 mg/dL (0.7-1.3); POTASSIUM 4.2 mmol/L (3.5-5.1)
[2019-05-02 16:51] LABS: ALBUMIN 2.8 g/dL (3.4-5.0); TOTAL BILIRUBIN 0.3 mg/dL (<0.1-1.0); TOTAL PROTEIN 7.9 g/dL (6.4-8.2)
[2019-05-02 20:05] VITALS: BP 144/97
[2019-05-02 20:26] VITALS: BP 145/90
[2019-05-03 03:46] VITALS: BP 140/90
--- NOTE | 2019-05-03 05:10 | NUR ---
PATIENT ARRIVED ON UNIT AT 2019 VIA CART FROM ED ACCOMPANIED WITH ED PERSONEL. ALERT AND ORIENTED X4. HAS IV ACCESS IN HIS R HAND. OPEN WOUND ON MID CHEST. NO DRAINAGE NOTED AT THIS TIME. HAS SEVERAL SMALL SPOT ON REBA LOWER EXT. PT SAYS IS POISON TATY. ACCUCHECKS AC&HS, WAS 182, REFUSED INSULIN STATING HE DOES NOT TAKE INSULIN AT HOME.SLEPT MOST OF NIGHT. DENIES PAIN.
[2019-05-03 06:02] LABS: HEMATOCRIT 38.1 % (42.0-52.0); HEMOGLOBIN 11.9 gm/dL (14.0-18.0); MCH 24.3 pg (26.0-34.0); MCHC 31.3 g/dL (28.0-37.0); MCV 77.6 fL (80.0-100.0); RBC 4.91 mil/uL (4.50-6.00); RDW 17.2 % (10.5-14.5); WBC 5.9 thou/uL (4.0-11.0)
[2019-05-03 06:20] LABS: POTASSIUM 3.3 mmol/L (3.5-5.1)
[2019-05-03 06:27] LABS: CALCIUM 7.3 mg/dL (8.5-10.1)
[2019-05-03 07:22] VITALS: BP 136/89
--- NOTE | 2019-05-03 12:54 | NUR ---
Received awake on bed. Due medications given as prescribed. A+Ox4. On room air. On blood sugar monitoring- patient has been refusing blood sugar monitoring and insulin since pre-breakfast- Dr Love informed that patient mentioned that he is not monitoring his blood sugar at home, not having insulin as well, and that his Diabetes is diet controlled- Dr Love informed. With IV at R hand, NS at 100cc/hr infusing well. Wound cultures, photo taken as reported by film processing shift supervisor nurse; dressing C/D/I. Pt up ad pablo. Pt tolerating carb controlled diet- able to finish meals, no nausea, no vomiting, no abdominal pain noted. As per film processing shift supervisor nurse, she mentioned that pt had unrecalled doses of maintenance medications- will bring from home so we can update pt's med rec; a/w medications from home. Pt prescribed with Potassium chloride IVPB, pt complaining of pain despite slowing down the rate and IV patent- Dr Love informed and mentioned that may d/c Potassium chloride IVPB and give onetime 1 tablet 40meq Potassium tablet by mouth. IV re-sited.
[2019-05-03 13:50] VITALS: BP 135/85
[2019-05-03 19:20] VITALS: BP 136/71
[2019-05-03] MEDS ORDERED: LIPITOR 20 MG T20 M1 PO (20:33)
[2019-05-03] MEDS ORDERED: NITROGLYCERIN0.4 MG SUBLING (20:33)
[2019-05-03] MEDS ORDERED: JARDIANCE25 MG PO (20:34)
--- NOTE | 2019-05-04 03:37 | NUR ---
ASSUMED CARE AROUND 1900. AXOX4. STURNUM DRESSING WAS WOOZING DRAINAGE. CHANGED DRESSING. NOW CDI. STILL REFUSED BLOOD GLUCOSE MONITORING. PT'S BROUGHT MEDICATION AND NEW MED REC COMPLETED AND SOME HOME MEDS STRATED PER DIPLOMA DENTAL ASSISTANT ASSOCIATE PROFESSOR OF LITERATURE. JARDIANCE WAS RESTARTED PER DIPLOMA DENTAL ASSISTANT ORDER AND MEDCIATION SENT TO PHARMACY FOR TAGGING. CONSENT SIGNED AND FILED. NO S/S ACUTE DISTRESS NOTED OR REPORTED AT THIS TIME. WILL CONT TO MONITOR FOR ANY CHANGES IN CONDITION.
[2019-05-04 03:49] VITALS: BP 144/77
[2019-05-04 05:46] LABS: ALBUMIN 2.9 g/dL (3.4-5.0); CREATININE 1.2 mg/dL (0.7-1.3); MAGNESIUM 1.7 mg/dL (1.8-2.4); POTASSIUM 3.9 mmol/L (3.5-5.1); TOTAL BILIRUBIN 0.2 mg/dL (<0.1-1.0); TOTAL PROTEIN 7.4 g/dL (6.4-8.2)
[2019-05-04 05:47] LABS: % SATURATION 12 % (20-39); IRON 32 ug/dL (65-175); TIBC 258 ug/dL (250-450)
[2019-05-04 05:53] LABS: HEMATOCRIT 38.4 % (42.0-52.0); HEMOGLOBIN 12.2 gm/dL (14.0-18.0); MCH 24.1 pg (26.0-34.0); MCHC 31.7 g/dL (28.0-37.0); MCV 76.1 fL (80.0-100.0); RBC 5.05 mil/uL (4.50-6.00); RDW 16.5 % (10.5-14.5)
[2019-05-04 09:36] VITALS: BP 136/92
--- NOTE | 2019-05-04 14:43 | NUR ---
TOWARDS POC PT A/O X4, VSS, AFEBRILE. PAIN MANAGED BY MEDS. WOUND CARE AND DRESSING DONE. WILL CONTINUE TO MONITOR.
--- NOTE | 2019-05-04 15:13 | HC ---
[facility] [place] [address] CONSULTATION Name: BENNIE GRECO Room #: 450-P ADM IN M.R.#: [id number] Admission: 05/02/19 ������������������ Attend Phys: Elmer Conrad MD Discharge: ������������������ Date of : 70 Report #: [id number] THIS REPORT FOR: //name// CC: Elmer Santiago [facility] DATE OF SERVICE: 05/03/2019 INFECTIOUS DISEASE CONSULTATION REASON FOR CONSULTATION: I was asked to evaluate concerning surgical site infection, sternum. HISTORY OF PRESENT ILLNESS: The patient is a 48-year-old with underlying history of coronary artery disease, status post coronary artery bypass grafting, 12/2018. He does have underlying diabetes and obesity. 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 This was subsequently closed with myocutaneous flap, pectoralis muscle on 02/04/2019. He received 6 weeks of IV antibiotic therapy followed by 4 weeks of Keflex. He finished this about 3 weeks ago. Over the last 10 days or so, he has noticed increased swelling in the lower portion of his sternal incision. No fever, chills or sweats. It spontaneously drained last evening purulent material. He has been off his diabetic medication due to good blood sugar reports. Again no fever, chills or sweats. Minimal amount of discomfort. Overall, he feels well. REVIEW OF SYSTEMS: Denies any other rashes or skin lesions. No nausea, vomiting, diarrhea, dysuria, frequency, cough or sputum production. A 10-point review of system was negative other than what has been described above. ALLERGIES: None known. MEDICATIONS: He was restarted on cefazolin last evening. PAST MEDICAL HISTORY: Depression, anxiety, hypertension, hyperlipidemia, coronary artery disease, gastroesophageal reflux, right thigh necrotizing fasciitis, right hand severed tendon, tinnitus, coronary artery bypass grafting. FAMILY HISTORY: Noncontributory. SOCIAL HISTORY: Previous smoker. No significant alcohol intake. PHYSICAL EXAMINATION: VITAL SIGNS: He was afebrile and hemodynamically stable. GENERAL: He is alert and cooperative, sitting up in his bed, in no distress. [facility] [address] [place] [address] CONSULTATION Name: BENNIE GRECO Room #: 450-[facility].#: [id number] Admission: 05/02/19 ������������������ Attend Phys: Elmer Conrad MD Discharge: ������������������ Date of : 70 Report #: [id number] He is obese. SKIN: Without rash or decubiti other than what will be described on his chest examination. No palpable adenopathy. HEENT: Eyes without scleral icterus. Mouth without mucositis. NECK: Supple with no thyromegaly or mass. LUNGS: Clear. HEART: Regular, without murmur, gallop or rub. Sternal incision was well approximated except for a fluctuant area to the distal aspect of the incision. There was surrounding erythema. There was purulent discharge able to be expressed. No foreign body visualized. ABDOMEN: Soft and nontender with no hepatosplenomegaly or mass. GENITAL: Not performed. RECTAL: Not performed. EXTREMITIES: Without clubbing, cyanosis or edema. NEUROLOGIC: Cranial nerves intact. Strength in the upper and lower extremities was normal. Sensation normal. Mood normal. LABORATORY STUDIES: Creatinine 1. Hemoglobin 11.9, white count 5.9, platelet count is 245,000. Sedimentation rate 35, CRP 39. CT scan of the chest showed a small fluid and gas collection to the distal aspect of his incision. There were some bony changes concerning for osteomyelitis in this region. IMPRESSION: A 48-year-old with, 1. Surgical site infection of the sternum following coronary artery bypass grafting. Previous cultures from blood and wound grew methicillin-susceptible Staph aureus in January. I am concerned that he has residual osteomyelitis causing this new issue. 2. Diabetes. 3. Obesity. RECOMMENDATION: I agree with current antibiotic management. Await cultures of wound drainage as well as blood. Surgical evaluation for further debridement. ��������������������������������������������� <ELECTRONICALLY SIGNED> ���������������������������������������� By: Estevan Castellanos MD ��������������������������������������������� 05/04/19 1513 1220 1240 Estevan Castellanos MD /nt
[2019-05-04 15:32] VITALS: BP 130/79
--- NOTE | 2019-05-04 19:48 | EKG ---
[address] [address] ELECTROCARDIOGRAM REPORT Name: BENNIE GRECO Room #: 450- ADM IN M.R.#: [id number] ������������������ Admission: 05/02/19 ������������������ Attend Phys: Elmer Conrad MD Discharge: ������������������ Date of : 70 Report #: [id number] ����������������������������������������������������������������� [id number] THIS REPORT FOR: //name// [facility] ED Test Date: 2019-05-02 Test Time: 16:12:34 Pat Name: VANNESADENIS ANGUS Department: Room: [facility] Gender: M Mat Packer: DHAVAL : 1970 Requested By: Demarcus Chapin Order Number: [id number] MD: Jairo Wong Measurements Intervals [place] Rate: 84 P: 12 MD: 169 QRS: 8 QRSD: 100 T: 104 QT: 331 QTc: 392 Interpretive Statements Sinus rhythm Anterior infarct, old Nonspecific T abnormalities, lateral leads Baseline wander in lead(s) V1 Compared to ECG 01/23/2019 16:40:58 T-wave abnormality now present ST (T wave) deviation no longer present Myocardial infarct finding still present Electronically Signed On 05-04-2019 19:47:58 CDT by Jairo Wong [email or web address] ��������������������������������������������� <ELECTRONICALLY SIGNED> ���������������������������������������� By: Jairo Wong MD ��������������������������������������������� 05/04/19 1947 11 11 Jairo Wong MD /EPI
[2019-05-04 19:56] VITALS: BP 132/74
--- NOTE | 2019-05-05 04:20 | NUR ---
ASSUMED CARE DEMI 1899. AXOX4. STURNAL DRESSING CHANGED. FLOWER PAIN AT THIS TIME. NO S/S ACUTE DISTRESS NOTED OR REPORTED AT THIS TIME. WILL CONT TO MOTNITOR FOR ANY CHANGES IN CONDITION.
[2019-05-05 08:00] VITALS: BP 145/93
--- NOTE | 2019-05-05 08:30 | NUR ---
Nutrition: pt admitted with sternal wound infection/abscess, S/P I&D. Pt S/P CABG in December then S/P flap closure of sternal wound, I&Ds in January. Eats well on carb controlled diet. Refusing accuchecks. 6% weight loss since January admit-favorable as current BMI 42, extreme class 3 obesity. No needs voiced for RD. States he is discharging today. Low nutrition risk.
--- NOTE | 2019-05-05 11:34 | NUR ---
WOUND CONSULT; A CHEST WOUND WAS IDENTIFIED RE; HEART SURGERY. SEROSANGINOUS DRAINAGE NOTED. A CLEAN WOUND BED. DR GRISELDA BOOKER PRESENT. WOUND MEASURES 3.5 X 1.9 RECOMMNDATION; N/A ORDERED A WOUND VAC. SEE ORDERS DISCUSSED WITH RN
[2019-05-05 15:00] VITALS: BP 117/74
--- NOTE | 2019-05-05 15:57 | NUR ---
PT ADMITTED RELATED TO STERNAL WOUND INFECTION. CM REVIEWED CHART AND SPOKE WITH CARE TEAM. CM MET WITH PT AT BEDSIDE THIS DAY. PT IS A&O X4. CM ROLE INTRODUCED. PT INDICATED HE LIVES IN A HOUSE WITH HIS SPOUSE WITH 3 STEPS TO ENTER AND NO STEPS PT USES INSIDE. 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 PT INDICATED HE HAD HOME INSUSION SERVICES IN THE PAST THROUGH [facility] AND HH [facility] WITH [facility]. PT INDICATED THAT HE WOULD LIKE TO USE BOTH IF HE NEEDED THEM UPON DC. CARE TEAM INDICATED THAT PT IS TO HAVE A HOME WOUND VAC ORDERED. [facility] HAS ORDERED IT. CM NOTIFIED [facility] OF NEED FOR HH UPON DC. ID INDICATED THAT THEY ANTIPATED PT GOING HOME ON ORAL ABX. CM TO FOLLOW INDICATED WITH DC PLANNING.
--- NOTE | 2019-05-05 18:53 | NUR ---
ASSUMED CARE 0700. ALERT X4. PAIN MANAGED WITH MEDICATION PRIOR TO WOUND CARE. WOUND VAC PLACED TODAY. PLANS TO HAVE WOUND VAC FOR HOME DELIVERED TOMORROW IN ORDER FOR PATIENT TO DC HOME. UP AB MARI IN ROOM. CALLS FOR ASSISTANCE.
[2019-05-05 19:33] VITALS: BP 116/74
[2019-05-06 07:13] VITALS: BP 112/69
--- NOTE | 2019-05-06 07:46 | NUR ---
ASSUMED CARE AROUND 1900. AXOX4. WOUND VAC ON CHEST INTACT. NO S/S ACUTE DISTRESS NOTED OR REPORTED AT THIS TIME. CARE TRANSFERRED TO DAY RN AT THIS TIME.
[2019-05-06] MEDS ORDERED: KEFLEX500 M1 PO (09:35)
--- NOTE | 2019-05-06 11:29 | NUR ---
Received awake on bed. Due medications given as prescribed. A+Ox4. On room air.
[2019-05-06 13:02] VITALS: BP 112/69
[2019-05-06 14:54] VITALS: BP 111/78
[2019-05-06 19:29] VITALS: BP 114/65
[2019-05-07 04:17] VITALS: BP 106/87
--- NOTE | 2019-05-07 05:39 | NUR ---
PATIENT IS ALERT AND ORIENTED. PATIENT IS UP AD MARI. PATIENTS WOUND VAC IS CLEAN DRY AND INTACT. PATIENT IS ACHS BUT IS REFUSING CHECKS. PATINET IS PENDING PORTABLE WOUND VAC DELIVERY AND THEN PATIENT IS ABLE TO DISCHARGE WITH HOME HEALTH. PATIENT DENIES PAIN. PATIENT ANXIOUS TO DC. PATIENTS WOUND VAC IS 125 MMHG CONTINOUS. PATIENT IS RESTING COMFORTABLY IN BED. WCM. PATIENT IS PROGRESSING TO GOALS.
[2019-05-07 07:22] VITALS: BP 118/66
[2019-05-07 09:50] VITALS: BP 118/66
--- NOTE | 2019-05-07 11:43 | NUR ---
Received awake on bed. Due medications given as prescribed. A+Ox4. On room air. With SL at R FA- intact, flushing well. With sternal wound connected to wound vac- on continous vac; wound dressing to be changed today as per wound nurse. Patient asking re: delivery of wound vac- asked Wound nurse Obey, delivery today but still a/w for time- patient updated. Wound nurse seen patient and talked to him. CM informed re: delivery of wound vac today- coordinating with home health. Vital signs stable.
--- NOTE | 2019-05-07 14:22 | NUR ---
PT'S WOUND VAC WAS DELIVERED BY [facility]. PT IS TO HAVE [facility] PER HIS REQUEST FOR WOUND CARE UPON DC. NO OTHER CM INTERVENTION INDICATED AT THIS TIME. CASE CLSOED.
--- NOTE | 2019-05-07 15:18 | NUR ---
WOUND CARE FOLLOW UP; THIS PATIENT HAS D/C ORDERS. THE WOUND VAC WAS CHANGED. THE WOUND IS VIABLE BEEFY RED TISSUE WITH GRANULATION IS VISABLE AFTER ONLY TWO DAYS. NO S/S OF INFECTION. PLAN OK TO D/C. DISCUSSED WITH STAFF
== END 2019-05-07 13:00 | disposition home health service (06) | DRG 857 ==
LOC: ER 14:52 → EROBS 19:18 → 4W 19:18
PROVIDERS: Emergency Medicine; Nurse Practitioner Family; ADMIT Internal Medicine Geriatric Medicine
PROC: 0J960ZZ Drainage of Chest Subcutaneous Tissue and Fascia, Open Approach (ICD-10-PCS; principal; 2019-05-03)
DX: T81.41XA Infection following a procedure, superficial incisional surgical site, initial encounter (principal); Z68.41 Body mass index [BMI] 40.0-44.9, adult; L02.213 Cutaneous abscess of chest wall; M86.8X8 Other osteomyelitis, other site; T81.31XA Disruption of external operation (surgical) wound, not elsewhere classified, initial encounter; F32.9 Major depressive disorder, single episode, unspecified; F41.9 Anxiety disorder, unspecified; I10 Essential (primary) hypertension; E78.00 Pure hypercholesterolemia, unspecified; K21.9 Gastro-esophageal reflux disease without esophagitis; I25.10 Atherosclerotic heart disease of native coronary artery without angina pectoris; E78.5 Hyperlipidemia, unspecified; E87.6 Hypokalemia; E11.69 Type 2 diabetes mellitus with other specified complication; E66.01 Morbid (severe) obesity due to excess calories; Y83.2 Surgical operation with anastomosis, bypass or graft as the cause of abnormal reaction of the patient, or of later complication, without mention of misadventure at the time of the procedure; Y92.89 Other specified places as the place of occurrence of the external cause; Z86.14 Personal history of Methicillin resistant Staphylococcus aureus infection; I25.2 Old myocardial infarction; Z95.5 Presence of coronary angioplasty implant and graft; Z87.891 Personal history of nicotine dependence; Z95.1 Presence of aortocoronary bypass graft; Z79.4 Long term (current) use of insulin; Z79.82 Long term (current) use of aspirin; Z79.899 Other long term (current) drug therapy
CPT/HCPCS: 10040

== ENCOUNTER 2019-06-13 16:02 | Inpatient (IN) | payer OTHER ==
[~2019-06-13] VITALS: Ht 175.3 cm; Wt 131.1 kg
[~2019-06-13 16:02] MED LIST changes: +JARDIANCE25 MG PO; +KEFLEX500 M1 PO; +LIPITOR 20 MG T20 M1 PO
[2019-06-13 16:11] VITALS: BP 154/109
[2019-06-13 18:11] LABS: BASOPHILS 1.5 % (0.0-2.0); EOSINOPHILS 3.6 % (0.0-3.0); HEMOGLOBIN 14.8 gm/dL (14.0-18.0); LYMPHOCYTES 23.3 % (24.0-44.0); MCH 24.5 pg (26.0-34.0); MCHC 32.2 g/dL (28.0-37.0); MONOCYTES 5.7 % (1.0-8.0); PLATELET COUNT 177 thou/uL (150-400); POLYS 65.9 % (36.0-66.0); RBC 6.05 mil/uL (4.50-6.00); RDW 18.5 % (10.5-14.5); WBC 6.1 thou/uL (4.0-11.0)
[2019-06-13 18:17] LABS: CALCIUM 9.5 mg/dL (8.5-10.1); CREATININE 1.4 mg/dL (0.7-1.3); POTASSIUM 3.8 mmol/L (3.5-5.1)
[2019-06-13 18:24] LABS: ALBUMIN 3.7 g/dL (3.4-5.0); DIRECT BILIRUBIN 0.1 mg/dL (<0.1-0.3); TOTAL BILIRUBIN 0.4 mg/dL (<0.1-1.0); TOTAL PROTEIN 7.9 g/dL (6.4-8.2)
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
[2019-06-13 19:16] LABS: ANISOCYTOSIS 1+
[2019-06-13 19:52] VITALS: BP 162/102
[2019-06-13 19:53] VITALS: BP 173/111
--- NOTE | 2019-06-13 22:10 | NUR ---
PT ADMISSION COMPLETED. PT IS ALERT AND ORIENTED. BLOOD SUGAR OF 111. PT HUNGRY, GIVEN 2 BOXED DINNERS.AFEBRILE. DENIES PAIN.UP AD MARI. FLUIDS INFUSING VIA RAC.HE IS AMBULATORY. ROOM AIR, SATTING OKAY.CALL LIGHT WITHIN REACH. WILL CONTINUE WITH POC TILL EOS.
[2019-06-13 22:35] VITALS: BP 151/94
[2019-06-14 04:30] VITALS: BP 155/102
[2019-06-14 05:22] LABS: HEMATOCRIT 43.7 % (42.0-52.0); MCH 24.3 pg (26.0-34.0); MCV 75.9 fL (80.0-100.0); RBC 5.76 mil/uL (4.50-6.00); WBC 6.7 thou/uL (4.0-11.0)
[2019-06-14 05:46] LABS: CALCIUM 8.9 mg/dL (8.5-10.1); CREATININE 1.3 mg/dL (0.7-1.3); POTASSIUM 3.8 mmol/L (3.5-5.1)
[2019-06-14 08:35] VITALS: BP 140/98
[2019-06-14 16:08] VITALS: BP 151/98
[2019-06-14 19:30] VITALS: BP 138/94
[2019-06-15 03:11] LABS: GLYCOHEMOGLOBIN (HGB A1C) 6.6 % (4.8-5.6)
[2019-06-15 03:20] VITALS: BP 137/79
--- NOTE | 2019-06-15 04:00 | NUR ---
PT IS PLEASANT AND COOPERATIVE. UP MARI. CONTINUES ON IV ABTS. CHEST WALL DRSG WAS CHANGED X 1 LAST NOC. SOME TENDERNESS NOTED.AFEBRILE.
[2019-06-15 05:15] LABS: HEMATOCRIT 42.7 % (42.0-52.0); HEMOGLOBIN 13.7 gm/dL (14.0-18.0); MCH 24.4 pg (26.0-34.0); MCV 76.1 fL (80.0-100.0); RBC 5.61 mil/uL (4.50-6.00); RDW 18.6 % (10.5-14.5); WBC 7.1 thou/uL (4.0-11.0)
[2019-06-15 06:37] LABS: CREATININE 1.2 mg/dL (0.7-1.3); POTASSIUM 3.8 mmol/L (3.5-5.1)
--- NOTE | 2019-06-15 06:53 | HC ---
[facility] [place] [address] CONSULTATION Name: BENNIE GRECO Room #: 421-P ADM IN M.R.#: [id number] Admission: 06/13/19 Attend Phys: Elmer Conrad MD Discharge: Date of : 70 Report #: [id number] THIS REPORT FOR: //name// CC: Elmer Santiago [facility] DATE OF SERVICE: 06/14/2019 INFECTIOUS DISEASE CONSULTATION ATTENDING PHYSICIAN: Dr. Conrad. REASON FOR CONSULTATION: Recurrent sternal wound infection. HISTORY OF PRESENT ILLNESS: A 48-year-old white man known to me from previous hospitalization at [facility] when he had a sternal wound infection requiring extensive debridement by Dr. Jenkins and subsequently plastic reconstruction of the sternal wound. During the initial hospitalization, the patient had a significant deep infection with significant elevation of ESR and CRP. On 05/03/2019, the day prior to my vacation, the patient did call back with history of recurrent sternal wound infection that required hospitalization and he undergoes evaluation by ____ and under 1% local anesthesia he had sternal wound abscess drainage and subsequently the patient is treated with vacuum device and with oral Keflex, which he already finished. The patient was on 1 gram p.o. b.i.d. for 10 days and he finished these. The patient went on developing now a proximal to the last recurrent superficial sternal wound infection another area of drainage. He did have a CT scan of the chest that failed to reveal an abscess. He did have an ESR and CRP that were the best ever. 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 History of dyslipidemia, hypertension, history of right thigh infection, fasciitis requiring surgeries and HBO therapy. The patient tells me he is not diabetic. The patient went on to developing 2 weeks ago some lesions on both legs after mowing and having ____ up legs with poison jorge. The lesions on his legs look like lesions of folliculitis and he still has area of purulence right there. SOCIAL HISTORY: See H and P, old records. FAMILY HISTORY: See H and P, old records. DRUG ALLERGIES: None listed. MEDICATIONS: The patient is currently on cefazolin 1 gram IV 2 times daily, insulin lispro per sliding scale, p.r.n. glucose, glucagon, p.r.n. ondansetron. [address] [address] CONSULTATION Name: BENNIE GRECO Room #: 421-P [facility] IN ..#: [id number] Admission: 06/13/19 Attend Phys: Elmer Conrad MD Discharge: Date of : 70 Report #: [id number] He has received I believe some normal saline and cefazolin 1 single dose. PHYSICAL EXAMINATION: GENERAL: A well-developed, overweight white man, not toxic looking. VITAL SIGNS: Temperature 98.5, pulse 74, respirations 18, BP 155/102. Height 5 feet 9 inches, weight 289 pounds. HEENMT: Within range. NECK: Supple, no thyromegaly. LUNGS: Clear. HEART: S1, S2. Sternal area reveals surgical scar over the sternum. The lower sternal area showed surgical scar that indicates has healed by secondary intention. Proximal to that scar, there is an area of spontaneous drainage and purulence over the presternal area. Suspect this is a superficial infection as well. ABDOMEN: Soft, no masses or megaly. GENITAL AND RECTAL: Deferred. EXTREMITIES: Reveal extensive lesions, sprain ____ by lawnmower and possibly secondarily infected with Staphylococcus. NEUROLOGIC: Grossly within normal limits. LABORATORY DATA: Sodium 140, potassium 4.1, CO2 of 28, BUN 11, creatinine 1.3, glucose 110, alkaline phosphatase 154. CRP 11.5 mg/L, on 05/02/2019 was 39.2 mg/L and on 01/24/2019 was 434 mg/L. WBC 6700, hemoglobin 14 g/dL, MCV decreased at 75.9, MCH decreased at 24.3, platelets 159,000. White blood cell count differential fairly normal. Sedimentation rate was 10 mm per hour yesterday, 35 mm per hour on 05/02/2019 and 82 mm per hour on 01/24/2019. Blood cultures were obtained and obviously they remained negative so far. Previous cultures of this in 01/2019 and again in 04/2019 revealed Staphylococcus aureus, oxacillin sensitive. A CT scan of the chest revealed no recurrence of sternal abscess, tiny air collection anterior soft tissues seen in the ____ no longer visualized. Status post coronary artery bypass grafting. Mediastinal sutures have been removed. Diastasis of the sternal wound site 1 cm and the mid portion of the left sternal had been removed. Nothing for recurrent abscess is seen. ASSESSMENT: 1. Recurrent sternal area infection, very likely with Staphylococcus aureus, oxacillin sensitive. 2. Morbid obesity. 3. History of sternal osteomyelitis, status post extensive debridement and flap reconstruction by Plastic Surgery. 4. Lesions on lower extremities. Question from lawnmower sprain though suspect they are lesions of Staphylococcus aureus folliculitis. SUGGESTIONS: Recommend proceed with debridement of sternal wound. Obtain [facility] [address] [place] [address] CONSULTATION Name: BENNIE GRECO Room #: 421-P [facility] IN .R.#: [id number] Admission: 06/13/19 Attend Phys: Elmer Conrad MD Discharge: Date of : 70 Report #: [id number] routine culture sternal wound. Increase Ancef 2 grams IV every 8 hours. We will recommend oral Keflex 500 mg 4 times daily or 1 gram p.o. b.i.d. for 4-6 weeks. We will recommend daily bathing with Hibiclens soap. Possibly to be on the safe side, we will reculture lesion on the right leg that is an area of purulence. Suspect there may be folliculitis due to Staphylococcus aureus. He also needs hemoglobin A1c to make sure he has no diabetes. Dr. Conrad, thank you for requesting my suggestions. <ELECTRONICALLY SIGNED> By: Franco Wong MD 06/15/19 0653 [id number] 1525 Franco Wong MD /nt
[2019-06-15 08:22] VITALS: BP 144/88
[2019-06-15 16:12] VITALS: BP 146/91
--- NOTE | 2019-06-15 18:08 | NUR ---
Assumed care of patient at 0700. Patient resting in bed. Denies pain except during dressing changes to sternal abcess. Up ad pablo in room without difficulty. Expresses frustration for having to stay in the hospital, but agreeable to staying to finish antibiotics and get home wound care set up. No other concerns. Continue to monitor.
[2019-06-15 21:00] VITALS: BP 164/91
--- NOTE | 2019-06-16 04:29 | NUR ---
PATIENT ALERT AND ORIENTED X4. UP ADLIB. DENIES PAIN. DRESSING TO STERNUM CHANGED WITH YELLOW DRAINAGE NOTED, HOWEVER, NO ODOR. POSSIBLE DISCHARGE TODAY IN THE AFTERNOON WITH ARRANGEMENTS FOR WOUND CARE ON SUNDAY AT HIS HOME. COOPERATIVE WITH CARE. RESTING QUIETLY. WILL MONITOR.
[2019-06-16 07:20] VITALS: BP 144/86
--- NOTE | 2019-06-16 11:34 | NUR ---
PT RESTING IN BED STATES NO PAIN AT PRESENT LUNGS CTA BS'S POSITIVE PT CONT OF B&B.HAS SURGICAL INCISION THAT HE SAYS KEEPS GETTING ABSESS'S. AREA IS CLEANED WITH NS THEN IDOFORM STRIP IS PACKED INTO COVERED AND CHANGED DAILY. PT WANTS TO GO HOME AND STATES CAN CHANE DRESSING.
[2019-06-16 16:17] VITALS: BP 131/81
[2019-06-16] MEDS ORDERED: CUBICIN500 MG IVPB (16:20)
[2019-06-16 16:44] VITALS: BP 131/81
[2019-06-16 17:24] VITALS: BP 131/81
--- NOTE | 2019-06-16 17:25 | NUR ---
PATIENT DISCHARGED AT THIS TIME. PT W/O PAIN OR RESP DISTRESS. LEFT WITH RIGHT AC IV ACSESS. WAS GIVEN FIRST DOSE OF DAPTOMYCIN. TOMCRYSTALRRNICOLASW WILL CALL [facility] INFUSION TO HAVE IV CARE AND IV ABT Q DAY. ALSO TO HAVE CBC CMP CPK Q THURSDAYS. WILL ALSO SEE DR NATHALY THOMPSON WAS GIVEN PHONE NUMBER TO MAKE APPT. ALL BELONGINGS PACKED AND SENT WITH PATIENT. PATIENT TAKEN W/C TO MAIN ENTRANCE AND FAMILY CAR.
== END 2019-06-16 17:15 | disposition home or self-care (01) | DRG 863 ==
LOC: ER 16:02 → EROBS 18:46 → 4E 20:35
PROVIDERS: Hospitalist; Internal Medicine Infectious Disease; Nurse Practitioner; ADMIT Hospitalist
DX: T81.41XA Infection following a procedure, superficial incisional surgical site, initial encounter (principal); L02.213 Cutaneous abscess of chest wall; Z68.41 Body mass index [BMI] 40.0-44.9, adult; F32.9 Major depressive disorder, single episode, unspecified; F41.9 Anxiety disorder, unspecified; I10 Essential (primary) hypertension; E78.00 Pure hypercholesterolemia, unspecified; K21.9 Gastro-esophageal reflux disease without esophagitis; E11.9 Type 2 diabetes mellitus without complications; E78.5 Hyperlipidemia, unspecified; E66.01 Morbid (severe) obesity due to excess calories; I25.2 Old myocardial infarction; Z87.891 Personal history of nicotine dependence; Z95.5 Presence of coronary angioplasty implant and graft; Z95.1 Presence of aortocoronary bypass graft; Z79.4 Long term (current) use of insulin; Z79.899 Other long term (current) drug therapy; Y83.2 Surgical operation with anastomosis, bypass or graft as the cause of abnormal reaction of the patient, or of later complication, without mention of misadventure at the time of the procedure; Y92.89 Other specified places as the place of occurrence of the external cause
CPT/HCPCS: 10084

== ENCOUNTER → 2019-06-17 | Outpatient (CLI) | payer OTHER ==
[~2019-06-17] MED LIST changes: +CUBICIN500 MG IVPB
[2019-06-17 14:35] VITALS: BP 141/97
--- NOTE | 2019-06-17 15:33 | NUR ---
IN FOR DAPTOMYCIN INFUSION FOR STERNAL WOUND INFECTION. ADMISSION HISTORY AND ASSESSMENT COMPLETED. PATIENT WAS DISCHARGED FROM HOSPITAL YESTERDAY WITH SALINE LOCK IN RAC. SITE RED/NOT PAINFUL. RECEIVED GOOD BLOOD RETURN. TOLERATED INFUSION WELL WITH INCIDENT. REMOVED SALINE LOCK. TO RETURN TOMORROW FOR THE SAME AND TO SEE DR. ANDERSEN. DISMISSED IN STABLE CONDITION.
== END ==
LOC: OPONC 09:56
DX: R78.81 Bacteremia (principal); L02.213 Cutaneous abscess of chest wall
CPT/HCPCS: 95000

== ENCOUNTER → 2019-06-18 | Outpatient (CLI) | payer OTHER ==
[2019-06-18 12:15] VITALS: BP 115/81
--- NOTE | 2019-06-18 13:54 | NUR ---
HERE FOR CONTINUED DAILY IV DAPTOMYCIN WELL CLINIC VISIT TODAY WITH DR. ANDERSEN. DR. ANDERSEN ROUNDED, ASSESSED WOUND, ASKED TO CONTINUE SAME PLAN WE AWAIT FINAL CULTURES AND SENSITIVITIES. REPACKED WOUND WITH IODINE TAPE. PT GOING DAILY TO EITHER WOUND CARE OR DR. BARRIOS'S OFFICE FOR WOUND CARE SO THEY CAN ALSO KEEP AN EYE ON THE WOUND. LOOKS CLEAN. NO SURROUNDING REDNESS, NO PAIN. PT HAD JUST HAD WOUND PACKED THIS MORNING AT DR. BARRIOS'S OFFICE AND NO DRAINAGE NOTED SINCE THAT TIME. REPORTS FEELING WELL. ONE BOUT OF DIARRHEA YESTERDAY, MILD NAUSEA THIS AM. DENIES NOTED FEVER/CHILLS/SWEATS. STATES EATING/DRINKING WELL. NEW IV ACCESS OBTAINED BY VASCULAR ACCESS NURSE. TOLERATED INFUSION WITHOUT INCIDENT. WILL LEAVE SALINE LOCK INTACT FOR DAILY USE. DISMISSED IN STABLE CONDITION. SCHEDULED TO RETURN AGAIN TOMORROW AFTER SEEING PA WITH DR. BARRIOS.
--- NOTE | 2019-06-20 12:29 | HC ---
[facility] [place] [address] CONSULTATION Name: BENNIE GRECO Room #: REG [facility]#: [id number] Admission: 06/18/19 Attend Phys: Estevan Castellanos MD Discharge: Date of : 70 Report #: [id number] THIS REPORT FOR: //name// CC: [facility] REASON FOR CONSULTATION: Followup methicillin-susceptible Staph aureus sternal osteomyelitis. HISTORY OF PRESENT ILLNESS: The patient remains on daptomycin. He has 5 days into his treatment course after his admission on 06/13/2019 where he was diagnosed with incisional abscess methicillin-susceptible Staph aureus. Positive blood cultures at that time, which are currently pending identification and sensitivity. Preliminary was gram-positive cocci. He has peripheral IV in place. He is undergoing daily dressing changes to his sternum. Purulent drainage has diminished. No pain. Diabetic control has been satisfactory. No cough or sputum production. REVIEW OF SYSTEMS: No other rashes or ulcers. No nausea, vomiting or diarrhea. No dysuria or frequency. PHYSICAL EXAMINATION: VITAL SIGNS: Afebrile and hemodynamically stable. GENERAL: Alert and cooperative. He is ambulatory. HEENT: Unremarkable. NECK: Supple. LUNGS: Clear. HEART: Regular. Sternum with mid incisional sinus tract. This was probed several centimeters. No purulence identified. No fluctuance surrounding this region. ABDOMEN: Soft. LABORATORY STUDIES: Reviewed including his cultures. IMPRESSION: Recurrent sternal incisional abscess concerning for deeper infection. We will await blood culture results. If negative, we will then continue with oral antibiotic therapy. If positive, we will then continue with IV antibiotics and follow up with Plastic Surgery. The patient will be reevaluated at end of this week. <ELECTRONICALLY SIGNED> By: Estevan Castellanos MD 06/20/19 1229 1227 0041 Estevan Castellanos MD /nt
== END ==
LOC: OPONC 09:24
DX: L02.213 Cutaneous abscess of chest wall (principal); R78.81 Bacteremia
CPT/HCPCS: 95000

== ENCOUNTER → 2019-06-19 | Outpatient (CLI) | payer OTHER ==
[2019-06-19 14:10] VITALS: BP 127/70
[2019-06-19 14:38] LABS: HEMATOCRIT 45.1 % (42.0-52.0); HEMOGLOBIN 14.4 gm/dL (14.0-18.0); MCH 24.4 pg (26.0-34.0); MCHC 31.8 g/dL (28.0-37.0); MCV 76.6 fL (80.0-100.0); RBC 5.89 mil/uL (4.50-6.00); RDW 18.8 % (10.5-14.5); WBC 5.4 thou/uL (4.0-11.0)
[2019-06-19 14:53] LABS: ALBUMIN 3.2 g/dL (3.4-5.0); CALCIUM 8.7 mg/dL (8.5-10.1); CREATININE 1.3 mg/dL (0.7-1.3); POTASSIUM 3.9 mmol/L (3.5-5.1); TOTAL BILIRUBIN 0.5 mg/dL (<0.1-1.0)
--- NOTE | 2019-06-19 15:02 | NUR ---
HERE FOR DAILY IV DAPTOMYCIN INFUSION. REPORTS DOING WELL. DENIES N/V/DIARRHEA, FEVER/CHILLS/SWEATS. EATING/DRINKING WELL. NO PAIN. PERIPHERAL IV PLACED YESTERDAY IN L FOREARM INTACT, SITE LOOKS GOOD. DAPTO INFUSED WITHOUT INCIDENT. SALINE LOCK LEFT IN PLACE FOR TOMORROW'S INFUSION. WILL RETURN AT [facility] AGAIN TOMORROW, RECEIVE INFUSION AND SEE DR. ANDERSEN TO DETERMINE CONTINUED TREATMENT COURSE. PT DISMISSED IN STABLE CONDITION TO DR. BARRIOS'S OFFICE FOR DAILY CHEST WOUND DRESSING CHANGE.
== END ==
LOC: OPONC 08:47
PROVIDERS: Specialist
DX: L02.213 Cutaneous abscess of chest wall (principal); R78.81 Bacteremia
CPT/HCPCS: 95000

== ENCOUNTER → 2019-06-20 | Outpatient (CLI) | payer OTHER ==
[2019-06-20 10:24] VITALS: BP 109/40
--- NOTE | 2019-06-20 13:55 | NUR ---
IN FOR DAPTOMYCIN INFUSION FOR RECURRENT STERNAL ABSCESSES. DENIED PAIN, FEVER/CHILLS. HAD SOME DIARRHEA TODAY BUT NONE YESTERDAY. ENCOURAGED PATIENT TO TAKE A PROBIOTIC. TOLERATED INFUSION WITHOUT INCIDENT. DR. ANDERSEN VISITED. NEW ORDERS WRITTEN TO STOP IV DAPTOMYCIN AFTER TODAY'S DOSE AND REMOVE IV. PRESCRIPTION GIVEN TO PATIENT FOR CEPHALEXIN. PATIENT SCHEDULED TO RETURN IN 2 WEEKS FOR F/U VISIT WITH DR. ANDERSEN. WOUND TO STERNUM LOOKS GOOD. SMALL AMOUNT OF SANGUINOUS DRAINAGE NOTED TO DRESSING. APPLIED CLEAN GAUZE. PATIENT'S WILL REPACK WOUND WHEN HE GETS HOME TODAY. IV REMOVED. DISMISSED IN GOOD CONDITION.
--- NOTE | 2019-06-24 19:06 | HC ---
[facility] [place] [address] CONSULTATION Name: BENNIE GRECO Room #: REG [facility]#: [id number] Admission: 06/20/19 ������������������ Attend Phys: Estevan Castellanos MD Discharge: ������������������ Date of : 70 Report #: [id number] THIS REPORT FOR: //name// CC: Estevan FRANCO MD DATE OF SERVICE: 06/20/2019 INFECTIOUS DISEASE OUTPATIENT CLINIC EVALUATION FOLLOWUP: Methicillin-susceptible Staph aureus sternal surgical site infection. HISTORY OF PRESENT ILLNESS: The patient remains on daptomycin having completed 7 days following his hospitalization where his sternal incision began to spontaneously drain. Culture positive for methicillin-susceptible Staph aureus. Blood cultures were positive for gram-positive cocci, but after being sent for identification, there has been no growth. Overall, he is tolerating his medications well. Drainage persists from the sinus tract. No surrounding tenderness or erythema. No fever, chills or sweats. Diabetic control satisfactory. REVIEW OF SYSTEMS: No cardiopulmonary, GI or complaints. PHYSICAL EXAMINATION: VITAL SIGNS: He is afebrile and hemodynamically stable. GENERAL: He is alert and cooperative, ambulatory. MOUTH: Without mucositis. NECK: Supple. CHEST: Clear. HEART: Regular. Sternal incision with a sinus tract in the mid portion. Still has serous drainage. No surrounding erythema or fluctuance. ABDOMEN: Soft. LABORATORY STUDIES: Reviewed. White count was normal. Creatinine 1.3. Previous sedimentation rate was 10. IMPRESSION: Recurrent sternal incisional abscess methicillin-susceptible Staph aureus. The patient will now change to oral antibiotic therapy with cephalexin for the next 2 weeks and will we will reevaluate at that point. The patient will follow up with cardiovascular surgery for dressing changes. ��������������������������������������������� <ELECTRONICALLY SIGNED> ���������������������������������������� By: Estevan Castellanos MD ��������������������������������������������� 06/24/19 1906 1240 [id number] Estevan Castellanos MD /nt
== END ==
LOC: OPONC 08:49
DX: L02.213 Cutaneous abscess of chest wall (principal); A49.02 Methicillin resistant Staphylococcus aureus infection, unspecified site
CPT/HCPCS: 95000

== ENCOUNTER → 2019-07-04 | Outpatient (CLI) | payer OTHER ==
--- NOTE | ~2019-07-04 | HC ---
[facility] [place] [address] CONSULTATION Name: BENNIE GRECO Room #: REG [facility]#: [id number] Admission: 07/04/19 ������������������ Attend Phys: Estevan Castellanos MD Discharge: ������������������ Date of : 70 Report #: [id number] THIS REPORT FOR: //name// CC: Estevan FRANCO MD INFECTIOUS DISEASE FOLLOWUP OUTPATIENT EVALUATION FOLLOWUP: Methicillin susceptible staph aureus sternal surgical site infection. HISTORY OF PRESENT ILLNESS: The patient completed his course of IV antibiotic therapy and is now on cephalexin for the last 2 weeks. The sternal sinus tract has closed. He denies any fever, chills or sweats. Overall, he feels well. Blood glucose control has been reasonable. He has had no pain in his chest. Again, no drainage for last several days. REVIEW OF SYSTEMS: No cardiopulmonary, GI or complaints. PHYSICAL EXAMINATION: VITAL SIGNS: He is afebrile and hemodynamically stable. GENERAL: He is alert and cooperative. Sternum was without tenderness or erythema. The previous sinus filled in and has a nice scar in the region. No fluctuance. ABDOMEN: Soft and nontender. LABORATORY STUDIES: Reviewed including CBC and chemistry. His creatinine is 1.5. IMPRESSION: Recurrent sternal incisional abscess methicillin-susceptible Staph aureus. The patient continues to improve on oral antibiotic therapy. I would like him to continue the same and he will refill his prescription. If he should have any further issues, he will call. He has scheduled follow up with primary care and Dr. Jnekins. ��������������������������������������������� ���������������������������������������� By: ��������������������������������������������� 1550 0131 Estevan Castellanos MD /nt
[2019-07-04 12:15] VITALS: BP 105/74
[2019-07-04 12:41] LABS: HEMATOCRIT 46.3 % (42.0-52.0); HEMOGLOBIN 14.8 gm/dL (14.0-18.0); MCH 25.1 pg (26.0-34.0); MCV 78.5 fL (80.0-100.0); RBC 5.9 mil/uL (4.50-6.00); RDW 20.3 % (10.5-14.5); WBC 6.2 thou/uL (4.0-11.0)
[2019-07-04 12:54] LABS: CALCIUM 9.1 mg/dL (8.5-10.1); CREATININE 1.5 mg/dL (0.7-1.3)
[2019-07-04 13:53] LABS: POTASSIUM 4.4 mmol/L (3.5-5.1)
--- NOTE | 2019-07-04 14:23 | NUR ---
DR. ANDERSEN VISITED. STERNAL WOUND HEALED. INSTRUCTIONS GIVEN TO TAKE KEFLEX X 2 MORE WEEKS AND THEN FOLLOWUP WITH ANY OF HIS DOCTORS IF HE STARTS HAVING RECURRENT ABSCESS/BUBBLING/PAIN/DRAINAGE/FEVER TO STERNUM. LABS DRAWN AND FAXED TO DR. ANDERSEN. DISMISSED IN GOOD CONDITION.
== END ==
LOC: OPONC 11:55
PROVIDERS: Specialist
DX: L02.213 Cutaneous abscess of chest wall (principal); B95.62 Methicillin resistant Staphylococcus aureus infection as the cause of diseases classified elsewhere; R78.81 Bacteremia
CPT/HCPCS: 91018